=== PATIENT | female | born 1955 | race Caucasian/White ===

== ENCOUNTER → 2017-12-16 07:47 | Outpatient (CLI) | payer OTHER, SELFPAY ==
[2017-12-16 08:45] LABS: Creatinine Urine Random 73.7 mg/dL
[2017-12-16 08:49] LABS: Microalbumi Creatinin Ratio Ur 25.7 ug/mg CR (<30); Microalbumin Urine Random 1.9 mg/dL (0-1.6)
[2017-12-16 15:37] LABS: BUN Creatinine Ratio 37.1 (6-22); Blood Urea Nitrogen 26 mg/dL (7-17); Calcium 9.2 mg/dL (8.4-10.2); Carbon Dioxide 33 mmol/L (22-32); Chloride 101 mmol/L (98-107); Cholesterol 208 mg/dL (140-199); Estimated Glomerular Filt Rate > 60.0 mL/min (>60); Glucose 90 mg/dL (80-110); HDL Cholesterol 74 mg/dL (40-60); HEMOLYSIS < 15 (0-50); LDL Cholesterol Calculated 124 mg/dL (<100); Potassium 4.4 mmol/L (3.4-5.1); Sodium 140 mmol/L (137-145); Triglycerides 50 mg/dL (35-150)
== END ==
PROVIDERS: Family Provider Family Medicine; PCP Family Medicine; Visit Provider Family Medicine
DX: I10 Essential (primary) hypertension (principal)
CPT/HCPCS: 36415; 80048; 80061; 82043; 82570

== ENCOUNTER → 2018-11-21 08:39 | Outpatient (CLI) | payer OTHER, SELFPAY ==
[2018-11-21 09:27] LABS: BUN Creatinine Ratio 37.5 (6-22); Blood Urea Nitrogen 30 mg/dL (7-17); Calcium 9.6 mg/dL (8.4-10.2); Carbon Dioxide 28 mmol/L (22-32); Chloride 104 mmol/L (98-107); Estimated Glomerular Filt Rate > 60.0 mL/min (>60); Glucose 87 mg/dL (80-110); HEMOLYSIS < 15 (0-50); Potassium 4.5 mmol/L (3.4-5.1); Sodium 143 mmol/L (137-145)
[2018-11-21 11:19] LABS: Creatinine Urine Random 42.4 mg/dL
[2018-11-21 11:25] LABS: Microalbumi Creatinin Ratio Ur 94.3 ug/mg CR (<30)
== END ==
PROVIDERS: PCP Family Medicine; Visit Provider Family Medicine
DX: I10 Essential (primary) hypertension (principal)
CPT/HCPCS: 36415; 80048; 82043; 82570

== ENCOUNTER → 2019-02-08 11:33 | Outpatient (CLI) | payer OTHER, SELFPAY ==
--- NOTE | 2019-02-08 11:35 | DI.RAD.S_ITS ---
PROCEDURE: XR CERVICAL SPINE 2V OR 3V INDICATIONS: Neck pain TECHNIQUE: 3 view(s) of the cervical spine were acquired. COMPARISON: None. FINDINGS: Bones: No fractures or dislocations to the C7 level. Anterior wedge compression deformity of indeterminate age is noted at T1 level with up to 30% loss of T1 vertebral body height anteriorly. Mild degenerative disc disease throughout cervical spine is seen. The lateral masses of C1 appear intact on the odontoid view. No suspicious bony lesions. Soft tissues: No prevertebral soft tissue swelling. IMPRESSION: Mild degenerative disc disease throughout cervical spine. No gross acute cervical spine compression fracture or spondylolisthesis. Age-indeterminate in anterior wedge compression deformity at T1 level with up to 30% loss of T1 vertebral body height anteriorly. Dictated by: Slick Laurent M.D. on 02/08/2019 at 12:13 Approved by: Slick Laurent M.D. on 02/08/2019 at 12:14
--- NOTE | 2019-02-08 11:35 | DI.RAD.S_ITS ---
PROCEDURE: XR SHOULDER LT MIN 2V INDICATIONS: Left shoulder pain TECHNIQUE: 3 views of the shoulder were acquired. COMPARISON: None. FINDINGS: Bones: Mild osteoarthritic changes in acromioclavicular joint and glenohumeral joint are seen. No fractures or dislocations. No suspicious bony lesions. Visualized ribs appear intact. Soft tissues: No suspicious soft tissue calcifications. IMPRESSION: Mild left shoulder joint osteoarthritis. No acute fracture or dislocation. Dictated by: Slick Laurent M.D. on 02/08/2019 at 12:14 Approved by: Slick Laurent M.D. on 02/08/2019 at 12:16
== END ==
PROVIDERS: PCP Family Medicine; Visit Provider Family Medicine
DX: M54.2 Cervicalgia (principal); M19.012 Primary osteoarthritis, left shoulder; M25.512 Pain in left shoulder
CPT/HCPCS: 72040; 73030

== ENCOUNTER 2019-07-19 09:45 | Outpatient (RCR) | payer OTHER, SELFPAY ==
--- NOTE | 2019-03-28 15:59 | PT.OIE ---
Current Diagnoses Pain in left shoulder (03/28/19) Cervicalgia (03/28/19) Abnormal posture (03/28/19) Weakness (03/28/19) Past Medical History (Last Reviewed 02/08/19 @ 19:26 by Fabian Boucher MD) Chicken pox (Resolved 1962) CTS (carpal tunnel syndrome) (Resolved 2007) Early onset macular degeneration (Chronic 2009) Essential hypertension (Chronic) Infertility (Resolved 1980) Irregular periods/menstrual cycles (Resolved 1974) Measles (Resolved 1962) Osteoarthritis (Chronic 2010) Pneumonia (Resolved 2014) Retinal detachment (Resolved 2009) Rubella (Resolved 1962) Past Surgical History (Last Reviewed 02/08/19 @ 19:26 by Fabian Boucher MD) Anesthesia (Resolved) History of carpal tunnel repair (Resolved 09/2009) Status post delivery (Resolved 11/05/84) Visit Care Team Role Provider Type Kathryn Brandon MD Attending Provider Physician Primary Care Provider Specialty: [facility] Address: [address] [place] [address] Email: [email or web address] Physical Therapy Initial Evaluation PT-OP-A Visit Information Start: 03/28/19 07:28 Freq: Status: Active Protocol: Document 03/28/19 13:00 MT (Rec: 03/28/19 13:47 MT [id number]) Out-Patient Physical Therapy Visit Information Visit Information Visit Type Initial Evaluation Visit Start Time 13:00 Visit Stop Time 13:46 Total Visit Minutes 46 Visit Number 1 Number of DISTRIBUTION ACCOUNTING CLERK Visits 0 PT-OP-B Current Condition Start: 03/28/19 07:28 Freq: Status: Active Protocol: Document 03/28/19 13:00 MT (Rec: 03/28/19 13:47 MT [id number]) Current Condition History of Current Condition History of Current Condition Went ot see Dr. Sparks for her shoulder and he told her she has tendonitis in her rotator cuff of left shoulder. She works at [employer] and has not been able to lift anything above her head above her head. She has taken time off work (she has 3 weeks) and her shoulder got better through that rest period. Pt reports pain about 3 inches down from base of neck. She was seen for a concussion. At recent visit, took x-ray and found compression fracture in cevical spine but was unsure about how shelter that compression was from. About 5 years ago, pt had a heavy box fall directly onto her head and she was seen for a concussion, which she thought may be where the compression fracture might have come from. She has history of sciatica. She stated that she woke up one morning in October and the pain in her neck was there. Neck pain seems to coincide with the L shoulder pain, but is less constant than the shoulder pain. Pt reports that the pain used to go down her arm about custodial, but does not do that as much. Pt was told by doctor to follow up after PT. Treatment Goals Patient/Caregiver Goals decrease pain, be able to return to work PT-OP-C Subjective Start: 03/28/19 07:28 Freq: Status: Active Protocol: Document 03/28/19 13:00 MT (Rec: 03/28/19 13:47 MT [id number]) Patient Questionnaires Neck Disability Index NDI Score 12 Neck Disability Index Impairment 20 to 39% Impaired (Score 10- 19) OP-PT Pain Assessment Location shoulder Pain Location Details L shoulder Intensity 6 Scale Used Numeric (1 - 10) Description Aching,Shooting Description- Other pins and needles Frequency Constant Pain Aggravating Factors Position,Lifting Other Pain Aggravating Factors long days of working Pain Alleviating Factors Cold,Heat,Medication,Position, Rest Other Pain Alleviating Factors laying on/compressing shoulder to alleviate discomfort at night neck Intensity 4 Scale Used Numeric (1 - 10) Description Aching,Shooting Frequency Daily Pain Aggravating Factors Lifting Pain Alleviating Factors Cold,Heat Other Pain Alleviating Factors tramidol for pain PT-OP-F Manual Assessment Start: 03/28/19 07:28 Freq: Status: Active Protocol: Document 03/28/19 13:00 MT (Rec: 03/28/19 13:47 MT [id number]) Manual Assessments Soft Tissue Assessment Soft Tissue Mobility Assessment pain along paraspinals at C-T junction, L UT tenderness & tightness PT-OP-J Posture/Palpation/Skin Start: 03/28/19 07:28 Freq: Status: Active Protocol: Document 03/28/19 13:00 MT (Rec: 03/28/19 13:47 MT [id number]) Posture Evaluation Delia Postural Classification System Delia Postural Classifications Posterior/Anterior Elbow Flexion Test 0 Comments Posture Comments Ant sheared pelvis; L shoulder higher than R, bilateral shoulders rounding forward in standing PT-OP-K Range of Motion Start: 03/28/19 07:28 Freq: Status: Active Protocol: Document 03/28/19 13:00 MT (Rec: 03/28/19 13:47 MT [id number]) Cervical Spine Range of Motion Cervical Spine Active Flexion 33 Extension 55 Rotation Left 58 Rotation Right 34 Lateral Flexion Left 46 Lateral Flexion Right 42 Comments pain w/flex; pain in L UT region w/L SB; pain in R side w/rotation B described as a stretching feeling Shoulder Goniometric Range of Motion Shoulder Right Active Shoulder ROM WFL Yes Testing Position Standing Flexion 154 Abduction 130 External Rotation at 0 degrees Abduction 62 Internal Rotation Behind Back (text) T7 Left Active Shoulder ROM WFL No Testing Position Standing Flexion 86 Abduction 84 External Rotation at 0 degrees Abduction 50 Internal Rotation Behind Back (text) T10 PT-OP-L Special Tests Start: 03/28/19 07:28 Freq: Status: Active Protocol: Document 03/28/19 13:00 MT (Rec: 03/28/19 13:47 MT [id number]) Special Tests Cervical Spine Special Tests Foraminal Compression Test Results aggravated sx in neck Traction Test Results relief of neck sx Spurling's Test Test Results pain in neck; stretching w/SB compression Shoulder Special Tests Neer Impingement Test Results positive L Christianson Farhad Impingement Test Results positive L Empty Can Test Results postive L Neural Special Tests- Upper Body Median Nerve Tension Test Results neg Radial Nerve Tension Test Results neg Ulnar Nerve Tension Test Results neg PT-OP-M Strength Start: 03/28/19 07:28 Freq: Status: Active Protocol: Document 03/28/19 13:00 MT (Rec: 03/28/19 13:47 MT [id number]) Cervical Spine Strength Cervical Spine Manual Muscle Testing Testing Position Sitting Flexion (C1-2) 4 Good Extension 5 Normal Rotation Left 4 Good Rotation Right 5 Normal Lateral Flexion Left (C3) 5 Normal Lateral Flexion Right (C3) 5 Normal Reason Not Measured Pain PT-OP-Q Treatments Start: 03/28/19 07:28 Freq: Status: Active Protocol: Document 03/28/19 13:00 MT (Rec: 03/28/19 13:47 MT [id number]) Therapeutic Exercises Supine Exercises chin tuck Supine Exercise Name chin tuck Reps/Minutes 10 Comments cueing to avoid excessive neck flexion off table Standing Exercises posture Standing Exercise Name wall posture with focus on scapular retraction Comments pt required frequent cueing for isolating shoulder retraction w/o lordosis PT-OP-T Assessment and Plan Start: 03/28/19 07:28 Freq: Status: Active Protocol: Document 03/28/19 13:00 MT (Rec: 03/28/19 13:47 MT [id number]) Physical Therapy Assessment Rehab Potential Rehabilitation Potential Good Evaluation Complexity Number of Personal Factors/Comorbidities 3 or More Number of Body Systems Impaired 4 or More Clinical Presentation at Evaluation Stable Impairments Impairments Activity Tolerance,Functional Activities,Functional Mobility ,Pain,Posture,ROM,Soft Tissue Mobility,Strength Goals NDI Fdc Goal (LTG) pt will decrease her NDI score to 6/50 LTG Duration 05/28/19 Oswestry Front Office Administrator Goal (LTG) Pt will decrease her Oswestry score to 6/50 LTG Duration 05/28/19 strength Impairment impaired neck strength Short Term Goal (STG) pt will be compliant with HEP for neck and postural strengthening exercises STG Duration 04/27/19 Front Office Administrator Goal (LTG) Pt will increase neck strength to 5/5 in all directions LTG Duration 05/28/19 posture Front Office Administrator Goal (LTG) pt will demonstrate improved posture with minimal deviations for improved activity tolerance for work and daily activities LTG Duration 05/28/19 pain Impairment neck pain Short Term Goal (STG) pt will decrease neck pain to 3/10 with daily activity STG Duration 04/27/19 Front Office Administrator Goal (LTG) pt will be able to complete a full shift at work without aggravation of symptoms LTG Duration 05/28/19 Assessment Summary Assessment Pt presents to physical therapy with neck and L shoulder pain. The L shoulder pain presents as a rotator cuff injury and appears separate from the neck symptoms. She has tightness and is very tender in her L upper trap. She is tender in her paraspinals with the most tenderness around her CT junction. She is limited in her neck ROM and strength d/t neck pain. She struggles with activities involved in her work such as lifting, overhead arm movement, and prolonged standing. Physical Therapy Plan Frequency and Duration Frequency of Treatment 2x/Week Duration of Treatment 2 months Plan of Care Start Date 03/28/19 Plan of Care End Date 05/28/19 Therapeutic Interventions Therapeutic Interventions Aquatic Therapy,Coordination Training,Home Exercise Program ,Joint Mobilizations,Manual Therapy,Neuromuscular Re- education,Patient/Caregiver Education,Self-Care/Home Management,Soft Tissue Mobilization,Taping, Therapeutic Activities, Therapeutic Exercises Modalities Cold Pack/Ice Massage,Electric Stimulation,Hot Packs, Infrared Therapy,Traction- Mechanical,Ultrasound Next Visit Focus/Plan Next Note Type Treatment Note Next Visit Plan develop HEP for neck ROM and postural strenthening exercises, manual therapy on UT and paraspinals, scapular proprioceptionand stabilization
--- NOTE | 2019-04-07 14:30 | PT.OTN ---
Current Diagnoses Pain in left shoulder (04/07/19) Cervicalgia (04/07/19) Abnormal posture (04/07/19) Weakness (04/07/19) Physical Therapy Treatment Note PT-OP-A Visit Information Start: 03/28/19 07:28 Freq: Status: Active Protocol: Document 04/07/19 10:30 AMB (Rec: 04/07/19 12:59 AMB [id number]) Out-Patient Physical Therapy Visit Information Visit Information Visit Type Treatment Note Visit Start Time 10:30 Visit Stop Time 11:15 Total Visit Minutes 45 Visit Number 2 PT-OP-B Current Condition Start: 03/28/19 07:28 Freq: Status: Active Protocol: Document 03/28/19 13:00 MT (Rec: 03/28/19 13:47 MT [id number]) Current Condition History of Current Condition History of Current Condition Went ot see Dr. Sparks for her shoulder and he told her she has tendonitis in her rotator cuff of left shoulder. She works at [employer] and has not been able to lift anything above her head above her head. She has taken time off work (she has 3 weeks) and her shoulder got better through that rest period. Pt reports pain about 3 inches down from base of neck. She was seen for a concussion. At recent visit, took x-ray and found compression fracture in cevical spine but was unsure about how longterm that compression was from. About 5 years ago, pt had a heavy box fall directly onto her head and she was seen for a concussion, which she thought may be where the compression fracture might have come from. She has history of sciatica. She stated that she woke up one morning in October and the pain in her neck was there. Neck pain seems to coincide with the L shoulder pain, but is less constant than the shoulder pain. Pt reports that the pain used to go down her arm about [facility], but does not do that as much. Pt was told by doctor to follow up after PT. Treatment Goals Patient/Caregiver Goals decrease pain, be able to return to work PT-OP-C Subjective Start: 03/28/19 07:28 Freq: Status: Active Protocol: Document 04/07/19 10:30 AMB (Rec: 04/07/19 12:59 AMB [id number]) OP-PT Subjective Patient Comments Patient Comments Etta notes she was quite sore after the initial evaluation, but knows that it was probably all the measurements that had to be done. She is doing her HEP. PT-OP-F Manual Assessment Start: 03/28/19 07:28 Freq: Status: Active Protocol: Document 03/28/19 13:00 MT (Rec: 03/28/19 13:47 MT [id number]) Manual Assessments Soft Tissue Assessment Soft Tissue Mobility Assessment pain along paraspinals at C-T junction, L UT tenderness & tightness PT-OP-J Posture/Palpation/Skin Start: 03/28/19 07:28 Freq: Status: Active Protocol: Document 03/28/19 13:00 MT (Rec: 03/28/19 13:47 MT [id number]) Posture Evaluation Delia Postural Classification System Delia Postural Classifications Posterior/Anterior Elbow Flexion Test 0 Comments Posture Comments Ant sheared pelvis; L shoulder higher than R, bilateral shoulders rounding forward in standing PT-OP-K Range of Motion Start: 03/28/19 07:28 Freq: Status: Active Protocol: Document 03/28/19 13:00 MT (Rec: 03/28/19 13:47 MT [id number]) Cervical Spine Range of Motion Cervical Spine Active Flexion 33 Extension 55 Rotation Left 58 Rotation Right 34 Lateral Flexion Left 46 Lateral Flexion Right 42 Comments pain w/flex; pain in L UT region w/L SB; pain in R side w/rotation B described as a stretching feeling Shoulder Goniometric Range of Motion Shoulder Right Active Shoulder ROM WFL Yes Testing Position Standing Flexion 154 Abduction 130 External Rotation at 0 degrees Abduction 62 Internal Rotation Behind Back (text) T7 Left Active Shoulder ROM WFL No Testing Position Standing Flexion 86 Abduction 84 External Rotation at 0 degrees Abduction 50 Internal Rotation Behind Back (text) T10 PT-OP-L Special Tests Start: 03/28/19 07:28 Freq: Status: Active Protocol: Document 03/28/19 13:00 MT (Rec: 03/28/19 13:47 MT [id number]) Special Tests Cervical Spine Special Tests Foraminal Compression Test Results aggravated sx in neck Traction Test Results relief of neck sx Spurling's Test Test Results pain in neck; stretching w/SB compression Shoulder Special Tests Neer Impingement Test Results positive L Christianson Farhad Impingement Test Results positive L Empty Can Test Results postive L Neural Special Tests- Upper Body Median Nerve Tension Test Results neg Radial Nerve Tension Test Results neg Ulnar Nerve Tension Test Results neg PT-OP-M Strength Start: 03/28/19 07:28 Freq: Status: Active Protocol: Document 03/28/19 13:00 MT (Rec: 03/28/19 13:47 MT [id number]) Cervical Spine Strength Cervical Spine Manual Muscle Testing Testing Position Sitting Flexion (C1-2) 4 Good Extension 5 Normal Rotation Left 4 Good Rotation Right 5 Normal Lateral Flexion Left (C3) 5 Normal Lateral Flexion Right (C3) 5 Normal Reason Not Measured Pain PT-OP-Q Treatments Start: 03/28/19 07:28 Freq: Status: Active Protocol: Document 04/07/19 10:30 AMB (Rec: 04/07/19 14:30 AMB [email or web address]) Therapeutic Exercises Supine Exercises 1 Supine Exercise Name cervical rotation isometric Reps/Minutes 5x5 ea chin tuck Supine Exercise Name chin tuck Reps/Minutes 10 Comments cueing to think of stretching occiput up, pulling chin back Sitting Exercises 1 Sitting Exercise Name UT/ levator scap stretch Reps/Minutes 30x2 Standing Exercises 2 Standing Exercise Name modified doorway stretch Reps/Minutes 30x3 Comments arms at 45 degrees abduction, straight elbow 1 Standing Exercise Name t band rows Resistance #2 t band Reps/Minutes 2x10 Comments vc posture posture Standing Exercise Name wall posture with focus on scapular retraction Comments pt required frequent cueing for isolating shoulder retraction w/o lordosis Manual Therapy Treatment Soft Tissue Mobilization 1 Body Location L UT, suboccipitals, paraspinals Mobilization Type Myofascial Release Intensity/Depth Moderate Body Position Hooklying Joint Mobilizations 1 Joint C4-7 Direction UPA Grade II Body Position Hooklying PT-OP-T Assessment and Plan Start: 03/28/19 07:28 Freq: Status: Active Protocol: Document 04/07/19 10:30 AMB (Rec: 04/07/19 14:30 AMB [id number]) Physical Therapy Assessment Assessment Summary Assessment Pt does tend to over use her upper trap due to left arm weakness. Tolerated stretching well today. Better awareness of posture with verbal cueing, but pt does revert to old habits without cueing. Physical Therapy Plan Next Visit Focus/Plan Next Note Type Treatment Note Next Visit Plan develop HEP for neck ROM and postural strenthening exercises, manual therapy on UT and paraspinals, scapular proprioceptionand stabilization
--- NOTE | 2019-04-11 14:11 | PT.OTN ---
Current Diagnoses Pain in left shoulder (04/11/19) Cervicalgia (04/11/19) Abnormal posture (04/11/19) Weakness (04/11/19) Physical Therapy Treatment Note PT-OP-A Visit Information Start: 03/28/19 07:28 Freq: Status: Active Protocol: Document 04/11/19 11:16 MT (Rec: 04/11/19 12:57 MT [email or web address]) Out-Patient Physical Therapy Visit Information Visit Information Visit Type Treatment Note Visit Start Time 11:16 Visit Stop Time 12:02 Total Visit Minutes 46 Visit Number 3 Number of CHRONOGRAPH OPERATOR Visits 0 PT-OP-B Current Condition Start: 03/28/19 07:28 Freq: Status: Active Protocol: Document 03/28/19 13:00 MT (Rec: 03/28/19 13:47 MT [id number]) Current Condition History of Current Condition History of Current Condition Went ot see Dr. Sparks for her shoulder and he told her she has tendonitis in her rotator cuff of left shoulder. She works at [employer] and has not been able to lift anything above her head above her head. She has taken time off work (she has 3 weeks) and her shoulder got better through that rest period. Pt reports pain about 3 inches down from base of neck. She was seen for a concussion. At recent visit, took x-ray and found compression fracture in cevical spine but was unsure about how correction that compression was from. About 5 years ago, pt had a heavy box fall directly onto her head and she was seen for a concussion, which she thought may be where the compression fracture might have come from. She has history of sciatica. She stated that she woke up one morning in October and the pain in her neck was there. Neck pain seems to coincide with the L shoulder pain, but is less constant than the shoulder pain. Pt reports that the pain used to go down her arm about long term, but does not do that as much. Pt was told by doctor to follow up after PT. Treatment Goals Patient/Caregiver Goals decrease pain, be able to return to work PT-OP-C Subjective Start: 03/28/19 07:28 Freq: Status: Active Protocol: Document 04/11/19 11:16 MT (Rec: 04/11/19 12:57 MT [id number]) OP-PT Subjective Patient Comments Patient Comments Etta stated that she was able to do a full shift of work yesterday. She did note increased soreness from working. PT-OP-F Manual Assessment Start: 03/28/19 07:28 Freq: Status: Active Protocol: Document 03/28/19 13:00 MT (Rec: 03/28/19 13:47 MT [id number]) Manual Assessments Soft Tissue Assessment Soft Tissue Mobility Assessment pain along paraspinals at C-T junction, L UT tenderness & tightness PT-OP-J Posture/Palpation/Skin Start: 03/28/19 07:28 Freq: Status: Active Protocol: Document 03/28/19 13:00 MT (Rec: 03/28/19 13:47 MT [id number]) Posture Evaluation Delia Postural Classification System Delia Postural Classifications Posterior/Anterior Elbow Flexion Test 0 Comments Posture Comments Ant sheared pelvis; L shoulder higher than R, bilateral shoulders rounding forward in standing PT-OP-K Range of Motion Start: 03/28/19 07:28 Freq: Status: Active Protocol: Document 03/28/19 13:00 MT (Rec: 03/28/19 13:47 MT [id number]) Cervical Spine Range of Motion Cervical Spine Active Flexion 33 Extension 55 Rotation Left 58 Rotation Right 34 Lateral Flexion Left 46 Lateral Flexion Right 42 Comments pain w/flex; pain in L UT region w/L SB; pain in R side w/rotation B described as a stretching feeling Shoulder Goniometric Range of Motion Shoulder Right Active Shoulder ROM WFL Yes Testing Position Standing Flexion 154 Abduction 130 External Rotation at 0 degrees Abduction 62 Internal Rotation Behind Back (text) T7 Left Active Shoulder ROM WFL No Testing Position Standing Flexion 86 Abduction 84 External Rotation at 0 degrees Abduction 50 Internal Rotation Behind Back (text) T10 PT-OP-L Special Tests Start: 03/28/19 07:28 Freq: Status: Active Protocol: Document 03/28/19 13:00 MT (Rec: 03/28/19 13:47 MT [id number]) Special Tests Cervical Spine Special Tests Foraminal Compression Test Results aggravated sx in neck Traction Test Results relief of neck sx Spurling's Test Test Results pain in neck; stretching w/SB compression Shoulder Special Tests Neer Impingement Test Results positive L Christianson Farhad Impingement Test Results positive L Empty Can Test Results postive L Neural Special Tests- Upper Body Median Nerve Tension Test Results neg Radial Nerve Tension Test Results neg Ulnar Nerve Tension Test Results neg PT-OP-M Strength Start: 03/28/19 07:28 Freq: Status: Active Protocol: Document 03/28/19 13:00 MT (Rec: 03/28/19 13:47 MT [id number]) Cervical Spine Strength Cervical Spine Manual Muscle Testing Testing Position Sitting Flexion (C1-2) 4 Good Extension 5 Normal Rotation Left 4 Good Rotation Right 5 Normal Lateral Flexion Left (C3) 5 Normal Lateral Flexion Right (C3) 5 Normal Reason Not Measured Pain PT-OP-Q Treatments Start: 03/28/19 07:28 Freq: Status: Active Protocol: Document 04/11/19 11:16 MT (Rec: 04/11/19 12:57 MT [email or web address]) Therapeutic Exercises Supine Exercises chin tuck Supine Exercise Name chin tuck Reps/Minutes 10 Comments cueing to think of stretching occiput up, pulling chin back Sitting Exercises neck rotation Sitting Exercise Name self-resisted neck rotation Side bilateral Reps/Minutes 2x15 sec holds 1 Sitting Exercise Name UT/ levator scap stretch Reps/Minutes 30x2 Standing Exercises 2 Standing Exercise Name modified doorway stretch Reps/Minutes 30x3 Comments arms at 45 degrees abduction, straight elbow 1 Standing Exercise Name t band rows and pull downs Resistance #2 t band Reps/Minutes 2x10 Comments vc posture posture Standing Exercise Name wall posture with focus on scapular retraction Comments pt required frequent cueing for isolating shoulder retraction w/o lordosis Manual Therapy Treatment Soft Tissue Mobilization 1 Body Location L UT, suboccipitals, paraspinals Mobilization Type Myofascial Release, Oscillations,Rolling,Strumming ,Sustained Pressure Intensity/Depth Moderate Body Position Hooklying PT-OP-T Assessment and Plan Start: 03/28/19 07:28 Freq: Status: Active Protocol: Document 04/11/19 11:16 MT (Rec: 04/11/19 12:57 MT [email or web address]) Physical Therapy Assessment Goals NDI Enterprise Application Architect Goal (LTG) pt will decrease her NDI score to 6/50 LTG Duration 05/28/19 strength Impairment impaired neck strength Short Term Goal (STG) pt will be compliant with HEP for neck and postural strengthening exercises STG Duration 04/27/19 Shelter Goal (LTG) Pt will increase neck strength to 5/5 in all directions LTG Duration 05/28/19 posture Shelter Goal (LTG) pt will demonstrate improved posture with minimal deviations for improved activity tolerance for work and daily activities LTG Duration 05/28/19 pain Impairment neck pain Short Term Goal (STG) pt will decrease neck pain to 3/10 with daily activity STG Duration 04/27/19 Enterprise Application Architect Goal (LTG) pt will be able to complete a full shift at work without aggravation of symptoms LTG Duration 05/28/19 Assessment Summary Assessment Reduced pt visits to 1x per week since she is compliant and independent with her HEP. Pt noted less pain and had more soft tissue mobility following STM to UT/LS/PS. Reviewed exercises given to pt and provided cueing for proper scapular motion and control. Pt tolerated stretches well. Physical Therapy Plan Frequency and Duration Frequency of Treatment 2x/Week Duration of Treatment 2 months Plan of Care Start Date 03/28/19 Plan of Care End Date 05/28/19 Next Visit Focus/Plan Next Note Type Treatment Note Next Visit Plan continue to progress HEP for scapular control/ proprioception and postural stability
--- NOTE | 2019-04-19 17:55 | PT.OTN ---
Current Diagnoses Pain in left shoulder (04/19/19) Cervicalgia (04/19/19) Abnormal posture (04/19/19) Weakness (04/19/19) Physical Therapy Treatment Note PT-OP-A Visit Information Start: 03/28/19 07:28 Freq: Status: Active Protocol: Document 04/19/19 16:44 MT (Rec: 04/19/19 17:49 MT [id number]) Out-Patient Physical Therapy Visit Information Visit Information Visit Type Treatment Note Visit Start Time 16:44 Visit Stop Time 17:30 Total Visit Minutes 46 Visit Number 4 Number of CANVASS MANAGER Visits 0 PT-OP-B Current Condition Start: 03/28/19 07:28 Freq: Status: Active Protocol: Document 03/28/19 13:00 MT (Rec: 03/28/19 13:47 MT [id number]) Current Condition History of Current Condition History of Current Condition Went ot see Dr. Sparks for her shoulder and he told her she has tendonitis in her rotator cuff of left shoulder. She works at [employer] and has not been able to lift anything above her head above her head. She has taken time off work (she has 3 weeks) and her shoulder got better through that rest period. Pt reports pain about 3 inches down from base of neck. She was seen for a concussion. 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 About 5 years ago, pt had a heavy box fall directly onto her head and she was seen for a concussion, which she thought may be where the compression fracture might have come from. She has history of sciatica. She stated that she woke up one morning in October and the pain in her neck was there. Neck pain seems to coincide with the L shoulder pain, but is less constant than the shoulder pain. Pt reports that the pain used to go down her arm about prison, but does not do that as much. Pt was told by doctor to follow up after PT. Treatment Goals Patient/Caregiver Goals decrease pain, be able to return to work PT-OP-C Subjective Start: 03/28/19 07:28 Freq: Status: Active Protocol: Document 04/19/19 16:44 MT (Rec: 04/19/19 17:49 MT [id number]) OP-PT Subjective Patient Comments Patient Comments Pt reported that she continues to have neck, shoulder, and hip pain. She has not had to work since the last PT visit. Pt stated that the doorway stretching exercises were hurting her knee. She reports that stairs are really hurting PT-OP-F Manual Assessment Start: 03/28/19 07:28 Freq: Status: Active Protocol: Document 03/28/19 13:00 MT (Rec: 03/28/19 13:47 MT [id number]) Manual Assessments Soft Tissue Assessment Soft Tissue Mobility Assessment pain along paraspinals at C-T junction, L UT tenderness & tightness PT-OP-J Posture/Palpation/Skin Start: 03/28/19 07:28 Freq: Status: Active Protocol: Document 03/28/19 13:00 MT (Rec: 03/28/19 13:47 MT [id number]) Posture Evaluation [facility] Postural Classification System Delia Postural Classifications Posterior/Anterior Elbow Flexion Test 0 Comments Posture Comments Ant sheared pelvis; L shoulder higher than R, bilateral shoulders rounding forward in standing PT-OP-K Range of Motion Start: 03/28/19 07:28 Freq: Status: Active Protocol: Document 03/28/19 13:00 MT (Rec: 03/28/19 13:47 MT [id number]) Cervical Spine Range of Motion Cervical Spine Active Flexion 33 Extension 55 Rotation Left 58 Rotation Right 34 Lateral Flexion Left 46 Lateral Flexion Right 42 Comments pain w/flex; pain in L UT region w/L SB; pain in R side w/rotation B described as a stretching feeling Shoulder Goniometric Range of Motion Shoulder Right Active Shoulder ROM WFL Yes Testing Position Standing Flexion 154 Abduction 130 External Rotation at 0 degrees Abduction 62 Internal Rotation Behind Back (text) T7 Left Active Shoulder ROM WFL No Testing Position Standing Flexion 86 Abduction 84 External Rotation at 0 degrees Abduction 50 Internal Rotation Behind Back (text) T10 PT-OP-L Special Tests Start: 03/28/19 07:28 Freq: Status: Active Protocol: Document 03/28/19 13:00 MT (Rec: 03/28/19 13:47 MT [id number]) Special Tests Cervical Spine Special Tests Foraminal Compression Test Results aggravated sx in neck Traction Test Results relief of neck sx Spurling's Test Test Results pain in neck; stretching w/SB compression Shoulder Special Tests Neer Impingement Test Results positive L Christianson Farhad Impingement Test Results positive L Empty Can Test Results postive L Neural Special Tests- Upper Body Median Nerve Tension Test Results neg Radial Nerve Tension Test Results neg Ulnar Nerve Tension Test Results neg PT-OP-M Strength Start: 03/28/19 07:28 Freq: Status: Active Protocol: Document 03/28/19 13:00 MT (Rec: 03/28/19 13:47 MT [id number]) Cervical Spine Strength Cervical Spine Manual Muscle Testing Testing Position Sitting Flexion (C1-2) 4 Good Extension 5 Normal Rotation Left 4 Good Rotation Right 5 Normal Lateral Flexion Left (C3) 5 Normal Lateral Flexion Right (C3) 5 Normal Reason Not Measured Pain PT-OP-Q Treatments Start: 03/28/19 07:28 Freq: Status: Active Protocol: Document 04/19/19 16:44 MT (Rec: 04/19/19 17:49 MT [id number]) Therapeutic Exercises Supine Exercises chin tuck Supine Exercise Name chin tuck Reps/Minutes 10 Comments cueing to think of stretching occiput up, pulling chin back Sitting Exercises neck rotation Sitting Exercise Name self-resisted neck rotation Side bilateral Reps/Minutes 2x15 sec holds Comments added to HEP with use of mirror for visual cueing 1 Sitting Exercise Name UT/ levator scap stretch Reps/Minutes 30 seconds Standing Exercises 2 Standing Exercise Name modified doorway stretch (arms at 45 degrees) Reps/Minutes 30 seconds Comments cueing to lean forward to achieve stretch vs lunging 1 Standing Exercise Name t band rows and pull downs Resistance #2 t band Reps/Minutes 10 Comments vc posture posture Standing Exercise Name wall posture with focus on scapular retraction Comments pt required frequent cueing for isolating shoulder retraction w/o lordosis Manual Therapy Treatment Soft Tissue Mobilization 1 Body Location B UT, LS, suboccipitals, paraspinals, SCM Mobilization Type Myofascial Release, Oscillations,Rolling,Strumming ,Sustained Pressure Intensity/Depth Moderate Body Position Hooklying PT-OP-T Assessment and Plan Start: 03/28/19 07:28 Freq: Status: Active Protocol: Document 04/19/19 16:44 MT (Rec: 04/19/19 17:49 MT [id number]) Physical Therapy Assessment Goals NDI Sewage 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 Goal (LTG) pt will decrease her NDI score to 6/50 LTG Duration 05/28/19 strength Impairment impaired neck strength Short Term Goal (STG) pt will be compliant with HEP for neck and postural strengthening exercises STG Duration 04/27/19 Sewage 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 Goal (LTG) Pt will increase neck strength to 5/5 in all directions LTG Duration 05/28/19 posture Sewage 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 Goal (LTG) pt will demonstrate improved posture with minimal deviations for improved activity tolerance for work and daily activities LTG Duration 05/28/19 pain Impairment neck pain Short Term Goal (STG) pt will decrease neck pain to 3/10 with daily activity STG Duration 04/27/19 Retirement Goal (LTG) pt will be able to complete a full shift at work without aggravation of symptoms LTG Duration 05/28/19 Assessment Summary Assessment Reviewed HEP with pt. Pt was performign doorway stretch with a lunge, so instructed her through forward lean to achieve proper stretch without pressure to her knees. Pt was able to perform wall posture exercise with less cueing and was better able to isolate her scapular motions without lumbar extension. Pt continues to require cueing for avoiding compensations with the strettches and exercises in her HEP. Following STM, pt was able to achieve greater ROM and reported less pain with neck rotation and side bending. Observed pt's gait: during R stance phase she leans to the R, elevates her L shoulder, and circumducts her L leg to step forward. This could be contributing to her neck pain, as she is inappropriately activating her shoulder and causing her UT/LS/scalenes could be tight. COuld also indicate that patient is getting improper coordination between her shoulder and pelvic girdle during gait Physical Therapy Plan Frequency and Duration Frequency of Treatment 2x/Week Duration of Treatment 2 months Plan of Care Start Date 03/28/19 Plan of Care End Date 05/28/19 Next Visit Focus/Plan Next Note Type Treatment Note Next Visit Plan continue to review HEP for technique, progress HEP for scapular stability and neck strength/ROM, begin working on standing posture, PNF with mass rolling
--- NOTE | 2019-04-26 18:35 | PT.OTN ---
Current Diagnoses Pain in left shoulder (04/26/19) Cervicalgia (04/26/19) Abnormal posture (04/26/19) Weakness (04/26/19) Physical Therapy Treatment Note PT-OP-A Visit Information Start: 03/28/19 07:28 Freq: Status: Active Protocol: Document 04/26/19 09:45 MT (Rec: 04/26/19 12:52 MT [id number]) Out-Patient Physical Therapy Visit Information Visit Information Visit Type Treatment Note Visit Start Time 09:45 Visit Stop Time 10:32 Total Visit Minutes 47 Visit Number 5 Number of CROP CONSULTANT Visits 0 PT-OP-B Current Condition Start: 03/28/19 07:28 Freq: Status: Active Protocol: Document 03/28/19 13:00 MT (Rec: 03/28/19 13:47 MT [id number]) Current Condition History of Current Condition History of Current Condition Went ot see Dr. Sparks for her shoulder and he told her she has tendonitis in her rotator cuff of left shoulder. She works at [employer] and has not been able to lift anything above her head above her head. She has taken time off work (she has 3 weeks) and her shoulder got better through that rest period. Pt reports pain about 3 inches down from base of neck. She was seen for a concussion. At recent visit, took x-ray and found compression fracture in cevical spine but was unsure about how long term care phlebotomist that compression was from. About 5 years ago, pt had a heavy box fall directly onto her head and she was seen for a concussion, which she thought may be where the compression fracture might have come from. She has history of sciatica. She stated that she woke up one morning in October and the pain in her neck was there. Neck pain seems to coincide with the L shoulder pain, but is less constant than the shoulder pain. Pt reports that the pain used to go down her arm about alf, but does not do that as much. Pt was told by doctor to follow up after PT. Treatment Goals Patient/Caregiver Goals decrease pain, be able to return to work PT-OP-C Subjective Start: 03/28/19 07:28 Freq: Status: Active Protocol: Document 04/26/19 09:45 MT (Rec: 04/26/19 12:52 MT [id number]) OP-PT Subjective Patient Comments Patient Comments Pt reported that she has been very sore in the last week. She was unsure whether it was from the STM from last session or from working. 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 PT-OP-F Manual Assessment Start: 03/28/19 07:28 Freq: Status: Active Protocol: Document 03/28/19 13:00 MT (Rec: 03/28/19 13:47 MT [id number]) Manual Assessments Soft Tissue Assessment Soft Tissue Mobility Assessment pain along paraspinals at C-T junction, L UT tenderness & tightness PT-OP-J Posture/Palpation/Skin Start: 03/28/19 07:28 Freq: Status: Active Protocol: Document 03/28/19 13:00 MT (Rec: 03/28/19 13:47 MT [id number]) Posture Evaluation [facility] Postural Classification System Delia Postural Classifications Posterior/Anterior Elbow Flexion Test 0 Comments Posture Comments Ant sheared pelvis; L shoulder higher than R, bilateral shoulders rounding forward in standing PT-OP-K Range of Motion Start: 03/28/19 07:28 Freq: Status: Active Protocol: Document 03/28/19 13:00 MT (Rec: 03/28/19 13:47 MT [id number]) Cervical Spine Range of Motion Cervical Spine Active Flexion 33 Extension 55 Rotation Left 58 Rotation Right 34 Lateral Flexion Left 46 Lateral Flexion Right 42 Comments pain w/flex; pain in L UT region w/L SB; pain in R side w/rotation B described as a stretching feeling Shoulder Goniometric Range of Motion Shoulder Right Active Shoulder ROM WFL Yes Testing Position Standing Flexion 154 Abduction 130 External Rotation at 0 degrees Abduction 62 Internal Rotation Behind Back (text) T7 Left Active Shoulder ROM WFL No Testing Position Standing Flexion 86 Abduction 84 External Rotation at 0 degrees Abduction 50 Internal Rotation Behind Back (text) T10 PT-OP-L Special Tests Start: 03/28/19 07:28 Freq: Status: Active Protocol: Document 03/28/19 13:00 MT (Rec: 03/28/19 13:47 MT [id number]) Special Tests Cervical Spine Special Tests Foraminal Compression Test Results aggravated sx in neck Traction Test Results relief of neck sx Spurling's Test Test Results pain in neck; stretching w/SB compression Shoulder Special Tests Neer Impingement Test Results positive L Christianson Farhad Impingement Test Results positive L Empty Can Test Results postive L Neural Special Tests- Upper Body Median Nerve Tension Test Results neg Radial Nerve Tension Test Results neg Ulnar Nerve Tension Test Results neg PT-OP-M Strength Start: 03/28/19 07:28 Freq: Status: Active Protocol: Document 03/28/19 13:00 MT (Rec: 03/28/19 13:47 MT [id number]) Cervical Spine Strength Cervical Spine Manual Muscle Testing Testing Position Sitting Flexion (C1-2) 4 Good Extension 5 Normal Rotation Left 4 Good Rotation Right 5 Normal Lateral Flexion Left (C3) 5 Normal Lateral Flexion Right (C3) 5 Normal Reason Not Measured Pain PT-OP-Q Treatments Start: 03/28/19 07:28 Freq: Status: Active Protocol: Document 04/26/19 09:45 MT (Rec: 04/26/19 12:52 MT [id number]) Therapeutic Exercises Supine Exercises self mob Supine Exercise Name pt lay on rolled towel placed at T5 to assist with thoracic extension Side bilateral Therapeutic Activity Therapeutic Activity posture Name standing posture training Comments training and education on standing posture with emphasis on trunk stacking and pelvic tilt to avoid excessive lordosis during standing Gait Training Gait Activity gait training Description gait training in mirror Comments emphasis on reciprocal arm swings to avoid shoulder elevation durign swing phase. Manual Therapy Treatment Soft Tissue Mobilization T/S Body Location L thoracic paraspinals, infraspinatus, rhomboids Mobilization Type Oscillations,Rolling,Strumming ,Sustained Pressure Intensity/Depth Moderate Body Position Sidelying Neuro Re-Education Treatment Other Activities PNF Details shoulder girdle PNF Comments pt c/o shoulder pain with posterior elevation end range, so switched to manual therapy and came back to PNF. Pt was able to perform PNF following manual, but was unable to tolerate sidelying throughout treatemtn due to R hip bursitis. PT-OP-T Assessment and Plan Start: 03/28/19 07:28 Freq: Status: Active Protocol: Document 04/26/19 09:45 MT (Rec: 04/26/19 12:52 MT [id number]) Physical Therapy Assessment Goals NDI Half-Way Goal (LTG) pt will decrease her NDI score to 6/50 LTG Duration 05/28/19 strength Impairment impaired neck strength Short Term Goal (STG) pt will be compliant with HEP for neck and postural strengthening exercises STG Duration 04/27/19 Internal Sales Goal (LTG) Pt will increase neck strength to 5/5 in all directions LTG Duration 05/28/19 posture Internal Sales Goal (LTG) pt will demonstrate improved posture with minimal deviations for improved activity tolerance for work and daily activities LTG Duration 05/28/19 pain Impairment neck pain Short Term Goal (STG) pt will decrease neck pain to 3/10 with daily activity STG Duration 04/27/19 Half-Way Goal (LTG) pt will be able to complete a full shift at work without aggravation of symptoms LTG Duration 05/28/19 Assessment Summary Assessment Pt was trained about proper standing posture to increase her standing tolerance at work with less aggravation of neck and shoulder region. Attempted L shoulder girdle PNF to improve pt motion patterns during gait. Pt c/o pain in shoulder at end range posterior elevation, but was able to tolerate moion after STM to scapular area. Pt was unable to tolerate sidelying very long for PNF treatmetn d/ t R hip pain, so switched to gait mechanics to focus on arm swing during ambulation, as pt tends to walk with increased L shoulder elevation during swing phase which can be exacerbating her shoulder pain. Pt struggled with coordinating reciprocal arm and leg movements with arm with, but was able to demonstrate slightly increased arm swing during normal gait after. Physical Therapy Plan Frequency and Duration Frequency of Treatment 2x/Week Duration of Treatment 2 months Plan of Care Start Date 03/28/19 Plan of Care End Date 05/28/19 Next Visit Focus/Plan Next Note Type Treatment Note Next Visit Plan continue to review HEP for technique, progress HEP for scapular stability and neck strength/ROM, begin working on standing posture, PNF with mass rolling
--- NOTE | 2019-05-03 15:46 | PT.OTN ---
Current Diagnoses Pain in left shoulder (05/03/19) Cervicalgia (05/03/19) Abnormal posture (05/03/19) Weakness (05/03/19) Physical Therapy Treatment Note PT-OP-A Visit Information Start: 03/28/19 07:28 Freq: Status: Active Protocol: Document 05/03/19 11:15 MT (Rec: 05/03/19 12:59 MT [id number]) Out-Patient Physical Therapy Visit Information Visit Information Visit Type Treatment Note Visit Start Time 11:15 Visit Stop Time 11:59 Total Visit Minutes 44 Visit Number 6 Number of ELEMENTARY ASSISTANT TEACHER Visits 0 PT-OP-B Current Condition Start: 03/28/19 07:28 Freq: Status: Active Protocol: Document 03/28/19 13:00 MT (Rec: 03/28/19 13:47 MT [id number]) Current Condition History of Current Condition History of Current Condition Went ot see Dr. Sparks for her shoulder and he told her she has tendonitis in her rotator cuff of left shoulder. She works at [employer] and has not been able to lift anything above her head above her head. She has taken time off work (she has 3 weeks) and her shoulder got better through that rest period. Pt reports pain about 3 inches down from base of neck. She was seen for a concussion. 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 About 5 years ago, pt had a heavy box fall directly onto her head and she was seen for a concussion, which she thought may be where the compression fracture might have come from. She has history of sciatica. She stated that she woke up one morning in October and the pain in her neck was there. Neck pain seems to coincide with the L shoulder pain, but is less constant than the shoulder pain. Pt reports that the pain used to go down her arm about senior care, but does not do that as much. Pt was told by doctor to follow up after PT. Treatment Goals Patient/Caregiver Goals decrease pain, be able to return to work PT-OP-C Subjective Start: 03/28/19 07:28 Freq: Status: Active Protocol: Document 05/03/19 11:15 MT (Rec: 05/03/19 12:59 MT [id number]) OP-PT Subjective Patient Comments Patient Comments Pt reported that she feels like she takes a step back with her shoulder and hip pain every time that she works. She also has a lot of pain when she is getting out of bed and is beginning to have pain in her R shoudler as well now , which she feels is from compensating so much. She said that she has been trying to pay atention to her walking and is trying to make the corrections that she learned from last time. PT-OP-F Manual Assessment Start: 03/28/19 07:28 Freq: Status: Active Protocol: Document 03/28/19 13:00 MT (Rec: 03/28/19 13:47 MT [id number]) Manual Assessments Soft Tissue Assessment Soft Tissue Mobility Assessment pain along paraspinals at C-T junction, L UT tenderness & tightness PT-OP-J Posture/Palpation/Skin Start: 03/28/19 07:28 Freq: Status: Active Protocol: Document 03/28/19 13:00 MT (Rec: 03/28/19 13:47 MT [id number]) Posture Evaluation [facility] Postural Classification System Delia Postural Classifications Posterior/Anterior Elbow Flexion Test 0 Comments Posture Comments Ant sheared pelvis; L shoulder higher than R, bilateral shoulders rounding forward in standing PT-OP-K Range of Motion Start: 03/28/19 07:28 Freq: Status: Active Protocol: Document 03/28/19 13:00 MT (Rec: 03/28/19 13:47 MT [id number]) Cervical Spine Range of Motion Cervical Spine Active Flexion 33 Extension 55 Rotation Left 58 Rotation Right 34 Lateral Flexion Left 46 Lateral Flexion Right 42 Comments pain w/flex; pain in L UT region w/L SB; pain in R side w/rotation B described as a stretching feeling Shoulder Goniometric Range of Motion Shoulder Right Active Shoulder ROM WFL Yes Testing Position Standing Flexion 154 Abduction 130 External Rotation at 0 degrees Abduction 62 Internal Rotation Behind Back (text) T7 Left Active Shoulder ROM WFL No Testing Position Standing Flexion 86 Abduction 84 External Rotation at 0 degrees Abduction 50 Internal Rotation Behind Back (text) T10 PT-OP-L Special Tests Start: 03/28/19 07:28 Freq: Status: Active Protocol: Document 03/28/19 13:00 MT (Rec: 03/28/19 13:47 MT [id number]) Special Tests Cervical Spine Special Tests Foraminal Compression Test Results aggravated sx in neck Traction Test Results relief of neck sx Spurling's Test Test Results pain in neck; stretching w/SB compression Shoulder Special Tests Neer Impingement Test Results positive L Christianson Farhad Impingement Test Results positive L Empty Can Test Results postive L Neural Special Tests- Upper Body Median Nerve Tension Test Results neg Radial Nerve Tension Test Results neg Ulnar Nerve Tension Test Results neg PT-OP-M Strength Start: 03/28/19 07:28 Freq: Status: Active Protocol: Document 03/28/19 13:00 MT (Rec: 03/28/19 13:47 MT [id number]) Cervical Spine Strength Cervical Spine Manual Muscle Testing Testing Position Sitting Flexion (C1-2) 4 Good Extension 5 Normal Rotation Left 4 Good Rotation Right 5 Normal Lateral Flexion Left (C3) 5 Normal Lateral Flexion Right (C3) 5 Normal Reason Not Measured Pain PT-OP-Q Treatments Start: 03/28/19 07:28 Freq: Status: Active Protocol: Document 05/03/19 11:15 MT (Rec: 05/03/19 12:59 MT [id number]) Therapeutic Exercises Sitting Exercises 1 Sitting Exercise Name UT/ levator scap stretch Reps/Minutes 30 seconds Standing Exercises scaption Standing Exercise Name pull apart t band with shoulder flexion Side bilateral Resistance L1 Reps/Minutes 15 1 Standing Exercise Name t band rows and pull downs Resistance #2 t band Reps/Minutes 10 Comments vc posture Therapeutic Activity Therapeutic Activity bed mobility Name log roll technique Comments pt instructed and cued during practice of log roll technique to get out of bed with less pain and pressure to hip and shoulder. Pt also educated in sleeping position for least aggravation of symptoms. Manual Therapy Treatment Soft Tissue Mobilization T/S Body Location L thoracic paraspinals, infraspinatus, rhomboids Mobilization Type Oscillations,Rolling,Strumming ,Sustained Pressure Intensity/Depth Moderate Body Position Supine 1 Body Location B UT, LS, suboccipitals, paraspinals, SCM Mobilization Type Myofascial Release, Oscillations,Rolling,Strumming ,Sustained Pressure Intensity/Depth Moderate Body Position Supine PT-OP-T Assessment and Plan Start: 03/28/19 07:28 Freq: Status: Active Protocol: Document 05/03/19 11:15 MT (Rec: 05/03/19 12:59 MT [id number]) Physical Therapy Assessment Goals NDI Shelter Goal (LTG) pt will decrease her NDI score to 6/50 LTG Duration 05/28/19 strength Impairment impaired neck strength Short Term Goal (STG) pt will be compliant with HEP for neck and postural strengthening exercises STG Duration 04/27/19 Shelter Goal (LTG) Pt will increase neck strength to 5/5 in all directions LTG Duration 05/28/19 posture Senior Database Engineer Goal (LTG) pt will demonstrate improved posture with minimal deviations for improved activity tolerance for work and daily activities LTG Duration 05/28/19 pain Impairment neck pain Short Term Goal (STG) pt will decrease neck pain to 3/10 with daily activity STG Duration 04/27/19 Senior Database Engineer Goal (LTG) pt will be able to complete a full shift at work without aggravation of symptoms LTG Duration 05/28/19 Assessment Summary Assessment Pt was able to perform log roll technique with less aggravation of shoulder and hip symptoms, so she was told to start incorporating that with getting out of bed. She was able to get greater neck ROM with SB and rotation to the L with report of less pain following STM to cervical and upper thoracis paraspinals and scalenes. Physical Therapy Plan Frequency and Duration Frequency of Treatment 2x/Week Duration of Treatment 2 months Plan of Care Start Date 03/28/19 Plan of Care End Date 05/28/19 Next Visit Focus/Plan Next Note Type Treatment Note Next Visit Plan continue to review HEP for technique, progress HEP for scapular stability and neck strength/ROM, begin working on standing posture, PNF with mass rolling
--- NOTE | 2019-05-10 19:02 | PT.OTN ---
Current Diagnoses Pain in left shoulder (05/10/19) Cervicalgia (05/10/19) Abnormal posture (05/10/19) Weakness (05/10/19) Physical Therapy Treatment Note PT-OP-A Visit Information Start: 03/28/19 07:28 Freq: Status: Active Protocol: Document 05/10/19 11:17 MT (Rec: 05/10/19 18:52 MT [id number]) Out-Patient Physical Therapy Visit Information Visit Information Visit Type Treatment Note Visit Start Time 11:18 Visit Stop Time 12:01 Total Visit Minutes 43 Visit Number 7 Number of RIPENING ROOM HAND Visits 0 PT-OP-B Current Condition Start: 03/28/19 07:28 Freq: Status: Active Protocol: Document 03/28/19 13:00 MT (Rec: 03/28/19 13:47 MT [id number]) Current Condition History of Current Condition History of Current Condition Went ot see Dr. Sparks for her shoulder and he told her she has tendonitis in her rotator cuff of left shoulder. She works at [employer] and has not been able to lift anything above her head above her head. She has taken time off work (she has 3 weeks) and her shoulder got better through that rest period. Pt reports pain about 3 inches down from base of neck. She was seen for a concussion. At recent visit, took x-ray and found compression fracture in cevical spine but was unsure about how termite treater that compression was from. About 5 years ago, pt had a heavy box fall directly onto her head and she was seen for a concussion, which she thought may be where the compression fracture might have come from. She has history of sciatica. She stated that she woke up one morning in October and the pain in her neck was there. Neck pain seems to coincide with the L shoulder pain, but is less constant than the shoulder pain. Pt reports that the pain used to go down her arm about long term, but does not do that as much. Pt was told by doctor to follow up after PT. 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 However, she feels like overall her pain has [place] less and she feels like she is starting to notice some improvement. She thinks that the log rolling technique is helping with her morning pain. PT-OP-F Manual Assessment Start: 03/28/19 07:28 Freq: Status: Active Protocol: Document 03/28/19 13:00 MT (Rec: 03/28/19 13:47 MT [id number]) Manual Assessments Soft Tissue Assessment Soft Tissue Mobility Assessment pain along paraspinals at C-T junction, L UT tenderness & tightness PT-OP-J Posture/Palpation/Skin Start: 03/28/19 07:28 Freq: Status: Active Protocol: Document 03/28/19 13:00 MT (Rec: 03/28/19 13:47 MT [id number]) Posture Evaluation Delia Postural Classification System Delia Postural Classifications Posterior/Anterior Elbow Flexion Test 0 Comments Posture Comments Ant sheared pelvis; L shoulder higher than R, bilateral shoulders rounding forward in standing PT-OP-K Range of Motion Start: 03/28/19 07:28 Freq: Status: Active Protocol: Document 03/28/19 13:00 MT (Rec: 03/28/19 13:47 MT [id number]) Cervical Spine Range of Motion Cervical Spine Active Flexion 33 Extension 55 Rotation Left 58 Rotation Right 34 Lateral Flexion Left 46 Lateral Flexion Right 42 Comments pain w/flex; pain in L UT region w/L SB; pain in R side w/rotation B described as a stretching feeling Shoulder Goniometric Range of Motion Shoulder Right Active Shoulder ROM WFL Yes Testing Position Standing Flexion 154 Abduction 130 External Rotation at 0 degrees Abduction 62 Internal Rotation Behind Back (text) T7 Left Active Shoulder ROM WFL No Testing Position Standing Flexion 86 Abduction 84 External Rotation at 0 degrees Abduction 50 Internal Rotation Behind Back (text) T10 PT-OP-L Special Tests Start: 03/28/19 07:28 Freq: Status: Active Protocol: Document 03/28/19 13:00 MT (Rec: 03/28/19 13:47 MT [id number]) Special Tests Cervical Spine Special Tests Foraminal Compression Test Results aggravated sx in neck Traction Test Results relief of neck sx Spurling's Test Test Results pain in neck; stretching w/SB compression Shoulder Special Tests Neer Impingement Test Results positive L Christianson Farhad Impingement Test Results positive L Empty Can Test Results postive L Neural Special Tests- Upper Body Median Nerve Tension Test Results neg Radial Nerve Tension Test Results neg Ulnar Nerve Tension Test Results neg PT-OP-M Strength Start: 03/28/19 07:28 Freq: Status: Active Protocol: Document 03/28/19 13:00 MT (Rec: 03/28/19 13:47 MT [id number]) Cervical Spine Strength Cervical Spine Manual Muscle Testing Testing Position Sitting Flexion (C1-2) 4 Good Extension 5 Normal Rotation Left 4 Good Rotation Right 5 Normal Lateral Flexion Left (C3) 5 Normal Lateral Flexion Right (C3) 5 Normal Reason Not Measured Pain PT-OP-Q Treatments Start: 03/28/19 07:28 Freq: Status: Active Protocol: Document 05/10/19 11:17 MT (Rec: 05/10/19 18:52 MT [id number]) Therapeutic Exercises Supine Exercises chin tuck Reps/Minutes 20 Comments cueing for proper motion Sitting Exercises 1 Sitting Exercise Name UT/ levator scap stretch Reps/Minutes 30 seconds Comments cueing for avoiding compensations Standing Exercises serratus punches Standing Exercise Name serratus punches at wall Side bilateral Reps/Minutes 20 1 Standing Exercise Name t band rows and pull downs Resistance #2 t band Reps/Minutes 10 Comments required cueing for proper motion posture Standing Exercise Name wall posture Side bilateral Comments added horizontal add/abd Manual Therapy Treatment Soft Tissue Mobilization 1 Body Location B UT, LS, suboccipitals, paraspinals, SCM Mobilization Type Myofascial Release, Oscillations,Rolling,Strumming ,Sustained Pressure Intensity/Depth Moderate Body Position Supine Neuro Re-Education Treatment Other Activities PNF Details shoulder girdle PNF Comments mass rolling/mass ext 1. rhythmic initiation 2. combination of isotonics 3. concentric reversals PT-OP-T Assessment and Plan Start: 03/28/19 07:28 Freq: Status: Active Protocol: Document 05/10/19 11:17 MT (Rec: 05/10/19 18:52 MT [id number]) Physical Therapy Assessment Goals NDI Correction Goal (LTG) pt will decrease her NDI score to 6/50 LTG Duration 05/28/19 strength Impairment impaired neck strength Short Term Goal (STG) pt will be compliant with HEP for neck and postural strengthening exercises STG Duration 04/27/19 Excelsior Picker Goal (LTG) Pt will increase neck strength to 5/5 in all directions LTG Duration 05/28/19 posture Correction Goal (LTG) pt will demonstrate improved posture with minimal deviations for improved activity tolerance for work and daily activities LTG Duration 05/28/19 pain Impairment neck pain Short Term Goal (STG) pt will decrease neck pain to 3/10 with daily activity STG Duration 04/27/19 Correction Goal (LTG) pt will be able to complete a full shift at work without aggravation of symptoms LTG Duration 05/28/19 Assessment Summary Assessment Reviwed pt's HEP. She still requires cueing for technique and slowing down her movements . Pt also required cueing for avoiding compensation with her streches, as she was rotating her head excessivley during her UT stretch. Pt has been able to tolerate much more pressure with STM. She was also able to tolerate PNF technique without c/o pain for mass rolling and extension, but requires frequent cueing for controlling movements and isolating desired motion. Physical Therapy Plan Frequency and Duration Frequency of Treatment 2x/Week Duration of Treatment 2 months Plan of Care Start Date 03/28/19 Plan of Care End Date 05/28/19 Next Visit Focus/Plan Next Note Type Progress Note Next Visit Plan continue to review HEP for technique, progress HEP for scapular stability and neck strength/ROM, begin working on standing posture, PNF with mass rolling
--- NOTE | 2019-05-18 12:10 | PT.OTN ---
Current Diagnoses Pain in left shoulder (05/18/19) Cervicalgia (05/18/19) Abnormal posture (05/18/19) Weakness (05/18/19) Physical Therapy Treatment Note PT-OP-A Visit Information Start: 03/28/19 07:28 Freq: Status: Active Protocol: Document 05/18/19 11:18 [facility] (Rec: 05/18/19 12:10 [facility] [id number]) Out-Patient Physical Therapy Visit Information Visit Information Visit Type Progress Note Visit Start Time 11:19 Visit Stop Time 11:59 Total Visit Minutes 40 Visit Number 8 Number of STEAMTABLE ATTENDANT RAILROAD Visits 0 PT-OP-B Current Condition Start: 03/28/19 07:28 Freq: Status: Active Protocol: Document 03/28/19 13:00 MT (Rec: 03/28/19 13:47 MT [id number]) Current Condition History of Current Condition History of Current Condition Went ot see Dr. Spakrs for her shoulder and he told her she has tendonitis in her rotator cuff of left shoulder. She works at [employer] and has not been able to lift anything above her head above her head. She has taken time off work (she has 3 weeks) and her shoulder got better through that rest period. Pt reports pain about 3 inches down from base of neck. She was seen for a concussion. At recent visit, took x-ray and found compression fracture in cevical spine but was unsure about how prison that compression was from. About 5 years ago, pt had a heavy box fall directly onto her head and she was seen for a concussion, which she thought may be where the compression fracture might have come from. She has history of sciatica. She stated that she woke up one morning in October and the pain in her neck was there. Neck pain seems to coincide with the L shoulder pain, but is less constant than the shoulder pain. Pt reports that the pain used to go down her arm about intermediate, but does not do that as much. Pt was told by doctor to follow up after PT. Treatment Goals Patient/Caregiver Goals decrease pain, be able to return to work PT-OP-C Subjective Start: 03/28/19 07:28 Freq: Status: Active Protocol: Document 05/18/19 11:18 [facility] (Rec: 05/18/19 12:10 [facility] [id number]) OP-PT Subjective Patient Comments Patient Comments pt reports afte rworking the past 2 days her pain is not as bad as it typically is after working 2 dsays in a row. PT-OP-F Manual Assessment Start: 03/28/19 07:28 Freq: Status: Active Protocol: Document 03/28/19 13:00 MT (Rec: 03/28/19 13:47 MT [id number]) Manual Assessments Soft Tissue Assessment Soft Tissue Mobility Assessment pain along paraspinals at C-T junction, L UT tenderness & tightness PT-OP-J Posture/Palpation/Skin Start: 03/28/19 07:28 Freq: Status: Active Protocol: Document 03/28/19 13:00 MT (Rec: 03/28/19 13:47 MT [id number]) Posture Evaluation Delia Postural Classification System Delia Postural Classifications Posterior/Anterior Elbow Flexion Test 0 Comments Posture Comments Ant sheared pelvis; L shoulder higher than R, bilateral shoulders rounding forward in standing PT-OP-K Range of Motion Start: 03/28/19 07:28 Freq: Status: Active Protocol: Document 05/18/19 11:18 [facility] (Rec: 05/18/19 12:10 [facility] [id number]) Cervical Spine Range of Motion Cervical Spine Active Flexion 60 Extension 54 Rotation Left 64 Rotation Right 70 Lateral Flexion Left 43 Lateral Flexion Right 42 Comments pain w/ L rotation only Shoulder Goniometric Range of Motion Shoulder Left Active Flexion 81 Abduction 82 PT-OP-L Special Tests Start: 03/28/19 07:28 Freq: Status: Active Protocol: Document 03/28/19 13:00 MT (Rec: 03/28/19 13:47 MT [id number]) Special Tests Cervical Spine Special Tests Foraminal Compression Test Results aggravated sx in neck Traction Test Results relief of neck sx Spurling's Test Test Results pain in neck; stretching w/SB compression Shoulder Special Tests Neer Impingement Test Results positive L Christianson Farhad Impingement Test Results positive L Empty Can Test Results postive L Neural Special Tests- Upper Body Median Nerve Tension Test Results neg Radial Nerve Tension Test Results neg Ulnar Nerve Tension Test Results neg PT-OP-M Strength Start: 03/28/19 07:28 Freq: Status: Active Protocol: Document 05/18/19 11:18 [facility] (Rec: 05/18/19 12:10 [facility] [id number]) Cervical Spine Strength Cervical Spine Manual Muscle Testing Testing Position Sitting Flexion (C1-2) 4+ Good+ Extension 5 Normal Rotation Left 5 Normal Rotation Right 5 Normal Lateral Flexion Left (C3) 5 Normal Lateral Flexion Right (C3) 5 Normal PT-OP-Q Treatments Start: 03/28/19 07:28 Freq: Status: Active Protocol: Document 05/18/19 11:18 [facility] (Rec: 05/18/19 12:10 [facility] [id number]) Therapeutic Exercises Standing Exercises posture Standing Exercise Name wall posture Side bilateral Reps/Minutes 30 sec hold x2 Comments w/shoulder ext in about 30 deg abd position Therapeutic Activity Therapeutic Activity sleep position Name s/l & supine Manual Therapy Treatment Soft Tissue Mobilization 1 Body Location B UT, LS, suboccipitals, paraspinals, SCM Mobilization Type Myofascial Release, Oscillations,Rolling,Strumming ,Sustained Pressure Intensity/Depth Moderate Body Position Supine PT-OP-T Assessment and Plan Start: 03/28/19 07:28 Freq: Status: Active Protocol: Document 05/18/19 11:18 [facility] (Rec: 05/18/19 12:10 [facility] [id number]) Physical Therapy Assessment Goals NDI Auto Brake Mechanic Goal (LTG) pt will decrease her NDI score to 6/50 05/18-cont limit likely d/t L shoulder impairments LTG Duration 07/19/19 strength Impairment impaired neck strength Short Term Goal (STG) pt will be compliant with HEP for neck and postural strengthening exercises STG Duration achieved progressing as needed Auto Brake Mechanic Goal (LTG) Pt will increase neck strength to 5/5 in all directions 05/18-significnatly improved, no pain, only flex limited to 4+/5 LTG Duration 05/28/19 posture Auto Brake Mechanic Goal (LTG) pt will demonstrate improved posture with minimal deviations for improved activity tolerance for work and daily activities 05/18-improving LTG Duration 06/17/19 pain Impairment neck pain Short Term Goal (STG) pt will decrease neck pain to 3/10 with daily activity 05/18-410 improving with less constant where as before 10/31 STG Duration 06/07/19 Jail Goal (LTG) pt will be able to complete a full shift at work without aggravation of symptoms 05/18-symptoms no longer as bad after a shift LTG Duration 07/19/19 Assessment Summary Assessment Pt is making excellent progrss in pain, ROM and strength of neck. She cont to improve and at this time is liekly most limited by her L shoulder which d/t pain and dysfunction creating inc use of UT & cervicall mm for lifitng of LUE, which likely causes pain. Pt would benefit from cont PT to address cont deficits of neck and sent note to re: L shoulder issue questioning possible referal. Physical Therapy Plan Frequency and Duration Frequency of Treatment 2x/Week Duration of Treatment 2 months Plan of Care Start Date 05/18/19 Plan of Care End Date 07/19/19 Therapeutic Interventions Therapeutic Interventions Aquatic Therapy,Coordination Training,Home Exercise Program ,Joint Mobilizations,Manual Therapy,Neuromuscular Re- education,Patient/Caregiver Education,Self-Care/Home Management,Soft Tissue Mobilization,Taping, Therapeutic Activities, Therapeutic Exercises Modalities Cold Pack/Ice Massage,Electric Stimulation,Hot Packs, Infrared Therapy,Traction- Mechanical,Ultrasound Next Visit Focus/Plan Next Note Type Treatment Note Next Visit Plan continue to review HEP for technique, progress HEP for scapular stability and neck strength/ROM, begin working on standing posture, PNF with mass rolling
--- NOTE | 2019-05-18 12:11 | PT.OPPOC ---
Current Diagnoses Pain in left shoulder (05/18/19) Cervicalgia (05/18/19) Abnormal posture (05/18/19) Weakness (05/18/19) Visit Care Team Role Provider Type Kathryn Brandon MD Attending Provider Physician Primary Care Provider Specialty: Family Practice Address: [address] [place] [address], [facility] [place], [address] Email: [email or web address] Plan Of Care PT-OP-T Assessment and Plan Start: 03/28/19 07:28 Freq: Status: Active Protocol: Document 05/18/19 11:18 [facility] (Rec: 05/18/19 12:10 [facility] [id number]) Physical Therapy Assessment Goals NDI Longterm Goal (LTG) pt will decrease her NDI score to 6/50 05/18-cont limit likely d/t L shoulder impairments LTG Duration 07/19/19 strength Impairment impaired neck strength Short Term Goal (STG) pt will be compliant with HEP for neck and postural strengthening exercises STG Duration achieved progressing as needed Wrap Checker Goal (LTG) Pt will increase neck strength to 5/5 in all directions 05/18-significnatly improved, no pain, only flex limited to 4+/5 LTG Duration 05/28/19 posture Longterm Goal (LTG) pt will demonstrate improved posture with minimal deviations for improved activity tolerance for work and daily activities 05/18-improving LTG Duration 06/17/19 pain Impairment neck pain Short Term Goal (STG) pt will decrease neck pain to 3/10 with daily activity 05/18-4/10 improving with less constant where as before 10/31 STG Duration 06/07/19 Longterm Goal (LTG) pt will be able to complete a full shift at work without aggravation of symptoms 05/18-symptoms no longer as bad after a shift LTG Duration 07/19/19 Assessment Summary Assessment Pt is making excellent progrss in pain, ROM and strength of neck. She cont to improve and at this time is liekly most limited by her L shoulder which d/t pain and dysfunction creating inc use of UT & cervicall mm for lifitng of LUE, which likely causes pain. Pt would benefit from cont PT to address cont deficits of neck and sent note to re: L shoulder issue questioning possible referal. Physical Therapy Plan Frequency and Duration Frequency of Treatment 1-2x/Week Duration of Treatment 2 months Plan of Care Start Date 05/18/19 Plan of Care End Date 07/19/19 Therapeutic Interventions Therapeutic Interventions Aquatic Therapy,Coordination Training,Home Exercise Program ,Joint Mobilizations,Manual Therapy,Neuromuscular Re- education,Patient/Caregiver Education,Self-Care/Home Management,Soft Tissue Mobilization,Taping, Therapeutic Activities, Therapeutic Exercises Modalities Cold Pack/Ice Massage,Electric Stimulation,Hot Packs, Infrared Therapy,Traction- Mechanical,Ultrasound Next Visit Focus/Plan Next Note Type Treatment Note Next Visit Plan continue to review HEP for technique, progress HEP for scapular stability and neck strength/ROM, begin working on standing posture, PNF with mass rolling Plan of Care Dates Plan of Care Start Date 05/18/19 Plan of Care End Date 07/19/19
--- NOTE | 2019-05-22 18:57 | PT.OTRE ---
Current Diagnoses Pain in left shoulder (05/22/19) Cervicalgia (05/22/19) Abnormal posture (05/22/19) Weakness (05/22/19) Past Medical History (Last Reviewed 02/08/19 @ 19:26 by Fabian Boucher MD) Chicken pox (Resolved 1962) CTS (carpal tunnel syndrome) (Resolved 2007) Early onset macular degeneration (Chronic 2009) Essential hypertension (Chronic) Infertility (Resolved 1980) Irregular periods/menstrual cycles (Resolved 1974) Measles (Resolved 1962) Osteoarthritis (Chronic 2010) Pneumonia (Resolved 2014) Retinal detachment (Resolved 2009) Rubella (Resolved 1962) Surgical History (Last Reviewed 02/08/19 @ 19:26 by Fabian Boucher MD) Anesthesia (Resolved) History of carpal tunnel repair (Resolved 09/2009) Status post delivery (Resolved 11/05/84) Visit Care Team Role Provider Type Kathryn Brandon MD Attending Provider Physician Primary Care Provider Specialty: [facility] Address: [address] [place] [address], [facility] Email: [email or web address] Physical Therapy Re-Evaluation PT-OP-A Visit Information Start: 03/28/19 07:28 Freq: Status: Active Protocol: Document 05/22/19 11:24 [facility] (Rec: 05/22/19 13:00 [facility] [id number]) Out-Patient Physical Therapy Visit Information Visit Information Visit Type Re-Evaluation Visit Start Time 11:21 Visit Stop Time 12:10 Total Visit Minutes 49 Visit Number 9 Number of INTERPRETER FOR THE DEAF Visits 0 PT-OP-B Current Condition Start: 03/28/19 07:28 Freq: Status: Active Protocol: Document 05/22/19 11:24 [facility] (Rec: 05/22/19 11:38 [facility] [id number]) Current Condition History of Current Condition Onset Date October Current Complaints L shoulder pain & neck pain History of Current Condition 05/22-L and shoulder pain started at the same time with gradual onset. Pt reports work aggrevates the pain the most. IE:Went ot see Dr. Sparks for her shoulder and he told her she has tendonitis in her rotator cuff of left shoulder. She works at [employer] and has not been able to lift anything above her head above her head. She has taken time off work (she has 3 weeks) and her shoulder got better through that rest period. Pt reports pain about 3 inches down from base of neck. She was seen for a concussion. At recent Dr. visit, took x-ray and found compression fracture in cevical spine but was unsure about how penitent[facility] that compression was from. About 5 years ago, pt had a heavy box fall directly onto her head and she was seen for a concussion, which she thought may be where the compression fracture might have come from. She has history of sciatica. She stated that she woke up one morning in October and the pain in her neck was there. Neck pain seems to coincide with the L shoulder pain, but is less constant than the shoulder pain. Pt reports that the pain used to go down her arm about skilled nursing, but does not do that as much. Pt was told by doctor to follow up after PT. Treatment Goals Patient/Caregiver Goals decrease pain, be able to work without pain, be able to lift again. PT-OP-C Subjective Start: 03/28/19 07:28 Freq: Status: Active Protocol: Document 05/22/19 11:24 [facility] (Rec: 05/22/19 11:38 [facility] [id number]) OP-PT Subjective Patient Comments Patient Comments Pt reprots MD sent referal OP-PT Pain Assessment Location shoulder Pain Location Details sup shoulder & UT Intensity 6 Scale Used Numeric (1 - 10) Description Aching,Sharp,With Movement Description- Other worst:8/10, always there light ache Frequency Daily Pain Duration once gets out of position is better Radiating Location in usmmer in arm but not as much now Pain Aggravating Factors ADL's,Lifting Other Pain Aggravating Factors reaching Pain Alleviating Factors Cold,Inactivity PT-OP-F Manual Assessment Start: 03/28/19 07:28 Freq: Status: Active Protocol: Document 05/22/19 11:24 [facility] (Rec: 05/22/19 18:56 [facility] [id number]) Manual Assessments Soft Tissue Assessment Soft Tissue Mobility Assessment tenderness to L pec, biceps, UT, LS PT-OP-J Posture/Palpation/Skin Start: 03/28/19 07:28 Freq: Status: Active Protocol: Document 03/28/19 13:00 [facility] (Rec: 03/28/19 13:47 [facility] [id number]) Posture Evaluation [facility] Postural Classification System [facility] Postural Classifications Posterior/Anterior Elbow Flexion Test 0 Comments Posture Comments Ant sheared pelvis; L shoulder higher than R, bilateral shoulders rounding forward in standing PT-OP-K Range of Motion Start: 03/28/19 07:28 Freq: Status: Active Protocol: Document 05/22/19 11:24 [facility] (Rec: 05/22/19 11:31 [facility] [id number]) Cervical Spine Range of Motion Cervical Spine Active Flexion 60 Extension 54 Rotation Left 64 Rotation Right 70 Lateral Flexion Left 43 Lateral Flexion Right 42 Comments pain w/ L rotation only Shoulder Goniometric Range of Motion Shoulder Measured in Degrees Left Passive Flexion 112 Abduction 82 External Rotation at 45 degrees 51 Abduction External Rotation at 0 degrees Abduction 57 Internal Rotation 33 Left Active Flexion 95 Extension 33 Abduction 71 External Rotation at 0 degrees Abduction 53 Internal Rotation Behind Back (text) mid sacrum PT-OP-L Special Tests Start: 03/28/19 07:28 Freq: Status: Active Protocol: Document 05/22/19 11:24 [facility] (Rec: 05/22/19 11:31 [facility] [id number]) Special Tests Shoulder Special Tests Sulcus Test Results neg AC Joint Compression Test Results neg [place] Test Test Results positive L Speed's Biceps Test Results pain but less pain then with Luna testing Neer Impingement Test Results positive L Christianson Farhad Impingement Test Results positive L Empty Can Test Results positive L PT-OP-M Strength Start: 03/28/19 07:28 Freq: Status: Active Protocol: Document 05/22/19 11:24 [facility] (Rec: 05/22/19 11:31 [facility] [id number]) Cervical Spine Strength Cervical Spine Manual Muscle Testing Testing Position Sitting Flexion (C1-2) 4+ Good+ Extension 5 Normal Rotation Left 5 Normal Rotation Right 5 Normal Lateral Flexion Left (C3) 5 Normal Lateral Flexion Right (C3) 5 Normal Reason Not Measured Pain Shoulder Strength Shoulder Manual Muscle Testing Right External Rotation 3 Fair Internal Rotation 3+ Fair+ Comments pt unable to go through gravity for flex, abd, ext ROM so less than 3/5 Left Flexion 4+ Good+ Extension 4 Good Abduction (C5) 5 Normal External Rotation 4- Good- Internal Rotation 5 Normal Elbow/Forearm Strength Elbow and Forearm Manual Muscle Testing Left Flexion (C6) 4 Good Supination 3+ Fair+ Reason Not Measured Pain PT-OP-Q Treatments Start: 03/28/19 07:28 Freq: Status: Active Protocol: Document 05/22/19 11:24 [facility] (Rec: 05/22/19 13:00 [facility] [id number]) Manual Therapy Treatment Soft Tissue Mobilization pec Body Location L pec & biceps Mobilization Type Rolling,Strumming Intensity/Depth Moderate Body Position Supine PT-OP-R Modalities Start: 03/28/19 07:28 Freq: Status: Active Protocol: Document 05/22/19 11:24 [facility] (Rec: 05/22/19 13:00 [facility] [id number]) Hot Pack/Cold Pack Treatment Cold Pack Location L Patient Position Hooklying Treatment Duration (minutes) 10 PT-OP-T Assessment and Plan Start: 03/28/19 07:28 Freq: Status: Active Protocol: Document 05/22/19 11:24 [facility] (Rec: 05/22/19 18:55 [facility] [id number]) Physical Therapy Assessment Goals shoulder strength Short Term Goal (STG) Pt will be indep with HEP. STG Duration 06/22/19 Process Control Manager Goal (LTG) Pt will have equal UE strength B in order to allow pt to do all lifting activities at home and work. LTG Duration 07/22/19 shoulder ROM Short Term Goal (STG) Pt will improve flex and abd ROM to 120 deg. STG Duration 06/22/19 Penitentiary Goal (LTG) Pt will have WNL ROM of L shoulder in order to do reaching activities required by work. LTG Duration 07/22/19 NDI Process Control Manager Goal (LTG) pt will decrease her NDI score to 6/50 05/18-cont limit likely d/t L shoulder impairments LTG Duration 07/19/19 strength Impairment impaired neck strength Short Term Goal (STG) pt will be compliant with HEP for neck and postural strengthening exercises STG Duration achieved progressing as needed Penitentiary Goal (LTG) Pt will increase neck strength to 5/5 in all directions 05/18-significnatly improved, no pain, only flex limited to 4+/5 LTG Duration 05/28/19 posture Penitentiary Goal (LTG) pt will demonstrate improved posture with minimal deviations for improved activity tolerance for work and daily activities 05/18-improving LTG Duration 06/17/19 pain Impairment neck pain Short Term Goal (STG) pt will decrease neck pain to 3/10 with daily activity 05/18-4/10 improving with less constant where as before 10/31 STG Duration 06/07/19 Penitentiary Goal (LTG) pt will be able to complete a full shift at work without aggravation of symptoms 05/18-symptoms no longer as bad after a shift LTG Duration 07/19/19 Assessment Summary Assessment Pt presents for cont treatment of neck pain which ahs improved with therapy and with new referal for left shoulder pain. Based on s/s and special tests, it is likely pt is experiencing biceps & rotator cuff tendinopathy and impingment. She would benefit from skilled PT in order to address this deficits and progress her back to being painfree at work and with ADLs . Physical Therapy Plan Frequency and Duration Frequency of Treatment 1-2x/week Duration of Treatment 2 months Plan of Care Start Date 05/22/19 Plan of Care End Date 07/22/19 Therapeutic Interventions Therapeutic Interventions Aquatic Therapy,Coordination Training,Home Exercise Program ,Joint Mobilizations,Manual Therapy,Neuromuscular Re- education,Patient/Caregiver Education,Self-Care/Home Management,Soft Tissue Mobilization,Taping, Therapeutic Activities, Therapeutic Exercises Modalities Cold Pack/Ice Massage,Electric Stimulation,Hot Packs, Infrared Therapy,Iontophoresis ,Traction- Mechanical, Ultrasound Next Visit Focus/Plan Next Note Type Treatment Note Next Visit Plan PNF, shoulder AAROM exercises, GH & AC joint mobs
--- NOTE | 2019-06-20 18:08 | PT.OTN ---
Current Diagnoses Pain in left shoulder (06/20/19) Cervicalgia (06/20/19) Abnormal posture (06/20/19) Weakness (06/20/19) Physical Therapy Treatment Note PT-OP-A Visit Information Start: 03/28/19 07:28 Freq: Status: Active Protocol: Document 06/20/19 11:21 [facility] (Rec: 06/20/19 18:06 [facility] [id number]) Out-Patient Physical Therapy Visit Information Visit Information Visit Type Treatment Note Visit Start Time 11:17 Visit Stop Time 11:57 Total Visit Minutes 40 Visit Number 10 Number of WEB DESIGNER Visits 0 PT-OP-B Current Condition Start: 03/28/19 07:28 Freq: Status: Active Protocol: Document 05/22/19 11:24 [facility] (Rec: 05/22/19 11:38 [facility] [id number]) Current Condition History of Current Condition Onset Date October Current Complaints L shoulder pain & neck pain History of Current Condition 05/22-L and shoulder pain started at the same time with gradual onset. Pt reports work aggrevates the pain the most. IE:Went ot see Dr. Sparks for her shoulder and he told her she has tendonitis in her rotator cuff of left shoulder. She works at [employer] and has not been able to lift anything above her head above her head. She has taken time off work (she has 3 weeks) and her shoulder got better through that rest period. Pt reports pain about 3 inches down from base of neck. She was seen for a concussion. At recent visit, took x-ray and found compression fracture in cevical spine but was unsure about how shelter that compression was from. About 5 years ago, pt had a heavy box fall directly onto her head and she was seen for a concussion, which she thought may be where the compression fracture might have come from. She has history of sciatica. She stated that she woke up one morning in October and the pain in her neck was there. Neck pain seems to coincide with the L shoulder pain, but is less constant than the shoulder pain. Pt reports that the pain used to go down her arm about snf, but does not do that as much. Pt was told by doctor to follow up after PT. Treatment Goals Patient/Caregiver Goals decrease pain, be able to work without pain, be able to lift again. PT-OP-C Subjective Start: 03/28/19 07:28 Freq: Status: Active Protocol: Document 06/20/19 11:21 [facility] (Rec: 06/20/19 18:06 [facility] [id number]) OP-PT Subjective Patient Comments Patient Comments Pt was doing well when off work d/t being sick but since working agin L shoulder is aggrevated again. PT-OP-F Manual Assessment Start: 03/28/19 07:28 Freq: Status: Active Protocol: Document 05/22/19 11:24 [facility] (Rec: 05/22/19 18:56 [facility] [id number]) Manual Assessments Soft Tissue Assessment Soft Tissue Mobility Assessment tenderness to L pec, biceps, UT, LS PT-OP-J Posture/Palpation/Skin Start: 03/28/19 07:28 Freq: Status: Active Protocol: Document 03/28/19 13:00 [facility] (Rec: 03/28/19 13:47 [facility] [id number]) Posture Evaluation [facility] Postural Classification System [facility] Postural Classifications Posterior/Anterior Elbow Flexion Test 0 Comments Posture Comments Ant sheared pelvis; L shoulder higher than R, bilateral shoulders rounding forward in standing PT-OP-K Range of Motion Start: 03/28/19 07:28 Freq: Status: Active Protocol: Document 05/22/19 11:24 [facility] (Rec: 05/22/19 11:31 [facility] [id number]) Cervical Spine Range of Motion Cervical Spine Active Flexion 60 Extension 54 Rotation Left 64 Rotation Right 70 Lateral Flexion Left 43 Lateral Flexion Right 42 Comments pain w/ L rotation only Shoulder Goniometric Range of Motion Shoulder Left Passive Flexion 112 Abduction 82 External Rotation at 45 degrees 51 Abduction External Rotation at 0 degrees Abduction 57 Internal Rotation 33 Left Active Flexion 95 Extension 33 Abduction 71 External Rotation at 0 degrees Abduction 53 Internal Rotation Behind Back (text) mid sacrum PT-OP-L Special Tests Start: 03/28/19 07:28 Freq: Status: Active Protocol: Document 05/22/19 11:24 [facility] (Rec: 05/22/19 11:31 [facility] [id number]) Special Tests Shoulder Special Tests Sulcus Test Results neg AC Joint Compression Test Results neg [place] Test Test Results positive L Speed's Biceps Test Results pain but less pain then with Luna testing Neer Impingement Test Results positive L Christianson Farhad Impingement Test Results positive L Empty Can Test Results positive L PT-OP-M Strength Start: 03/28/19 07:28 Freq: Status: Active Protocol: Document 05/22/19 11:24 [facility] (Rec: 05/22/19 11:31 [facility] [id number]) Cervical Spine Strength Cervical Spine Manual Muscle Testing Testing Position Sitting Flexion (C1-2) 4+ Good+ Extension 5 Normal Rotation Left 5 Normal Rotation Right 5 Normal Lateral Flexion Left (C3) 5 Normal Lateral Flexion Right (C3) 5 Normal Reason Not Measured Pain Shoulder Strength Shoulder Manual Muscle Testing Right External Rotation 3 Fair Internal Rotation 3+ Fair+ Comments pt unable to go through gravity for flex, abd, ext ROM so less than 3/5 Left Flexion 4+ Good+ Extension 4 Good Abduction (C5) 5 Normal External Rotation 4- Good- Internal Rotation 5 Normal Elbow/Forearm Strength Elbow and Forearm Manual Muscle Testing Left Flexion (C6) 4 Good Supination 3+ Fair+ Reason Not Measured Pain PT-OP-Q Treatments Start: 03/28/19 07:28 Freq: Status: Active Protocol: Document 06/20/19 11:21 [facility] (Rec: 06/20/19 18:06 [facility] [id number]) Therapeutic Exercises Supine Exercises 1 Supine Exercise Name AAROM ER & chest press Equipment Used tbar Reps/Minutes 15 Standing Exercises 2 Standing Exercise Name AAROm abd Side left Reps/Minutes 10 Comments comfortable range Manual Therapy Treatment Soft Tissue Mobilization pec Body Location L pec & biceps Mobilization Type Rolling,Strumming Intensity/Depth Moderate Body Position Supine 1 Body Location L UT, LS Mobilization Type Myofascial Release, Oscillations,Rolling,Strumming ,Sustained Pressure Intensity/Depth Moderate Body Position Supine Joint Mobilizations AC Joint ventral FM 1 Joint GH Direction distraction, inf, post glides PT-OP-R Modalities Start: 03/28/19 07:28 Freq: Status: Active Protocol: Document 05/22/19 11:24 [facility] (Rec: 05/22/19 13:00 [facility] [id number]) Hot Pack/Cold Pack Treatment Cold Pack Location L Patient Position Hooklying Treatment Duration (minutes) 10 PT-OP-T Assessment and Plan Start: 03/28/19 07:28 Freq: Status: Active Protocol: Document 06/20/19 11:21 [facility] (Rec: 06/20/19 18:08 [facility] [id number]) Physical Therapy Assessment Goals shoulder strength Short Term Goal (STG) Pt will be indep with HEP. STG Duration 06/22/19 Correction Goal (LTG) Pt will have equal UE strength B in order to allow pt to do all lifting activities at home and work. LTG Duration 07/22/19 shoulder ROM Short Term Goal (STG) Pt will improve flex and abd ROM to 120 deg. STG Duration 06/22/19 Supervisor Laundry Goal (LTG) Pt will have WNL ROM of L shoulder in order to do reaching activities required by work. LTG Duration 07/22/19 NDI Correction Goal (LTG) pt will decrease her NDI score to 6/50 05/18-cont limit likely d/t L shoulder impairments LTG Duration 07/19/19 strength Impairment impaired neck strength Short Term Goal (STG) pt will be compliant with HEP for neck and postural strengthening exercises STG Duration achieved progressing as needed Supervisor Laundry Goal (LTG) Pt will increase neck strength to 5/5 in all directions 05/18-significnatly improved, no pain, only flex limited to 4+/5 LTG Duration 05/28/19 posture Supervisor Laundry Goal (LTG) pt will demonstrate improved posture with minimal deviations for improved activity tolerance for work and daily activities 05/18-improving LTG Duration 06/17/19 pain Impairment neck pain Short Term Goal (STG) pt will decrease neck pain to 3/10 with daily activity 05/18-4/10 improving with less constant where as before 10/31 STG Duration 06/07/19 Supervisor Laundry Goal (LTG) pt will be able to complete a full shift at work without aggravation of symptoms 05/18-symptoms no longer as bad after a shift LTG Duration 07/19/19 Assessment Summary Assessment Pt did well with AAROm with cueing to stay in comfortable range. She was able to improve ER & IR after manual treatment with dec pain during motions passively Physical Therapy Plan Frequency and Duration Frequency of Treatment 1-2x/week Duration of Treatment 2 months Plan of Care Start Date 05/22/19 Plan of Care End Date 07/22/19 Therapeutic Interventions Therapeutic Interventions Aquatic Therapy,Coordination Training,Home Exercise Program ,Joint Mobilizations,Manual Therapy,Neuromuscular Re- education,Patient/Caregiver Education,Self-Care/Home Management,Soft Tissue Mobilization,Taping, Therapeutic Activities, Therapeutic Exercises Modalities Cold Pack/Ice Massage,Electric Stimulation,Hot Packs, Infrared Therapy,Iontophoresis ,Traction- Mechanical, Ultrasound Next Visit Focus/Plan Next Note Type Treatment Note Next Visit Plan PNF, shoulder AAROM exercises, GH & AC joint mobs
--- NOTE | 2019-06-28 09:02 | PT.OTN ---
Current Diagnoses Pain in left shoulder (06/28/19) Cervicalgia (06/28/19) Abnormal posture (06/28/19) Weakness (06/28/19) Physical Therapy Treatment Note PT-OP-A Visit Information Start: 03/28/19 07:28 Freq: Status: Active Protocol: Document 06/28/19 08:12 [facility] (Rec: 06/28/19 09:01 [facility] [id number]) Out-Patient Physical Therapy Visit Information Visit Information Visit Type Treatment Note Visit Start Time 08:15 Visit Stop Time 09:04 Total Visit Minutes 49 Visit Number 11 Number of INDUSTRIAL GAS FITTER Visits 0 PT-OP-B Current Condition Start: 03/28/19 07:28 Freq: Status: Active Protocol: Document 05/22/19 11:24 [facility] (Rec: 05/22/19 11:38 [facility] [id number]) Current Condition History of Current Condition Onset Date October Current Complaints L shoulder pain & neck pain History of Current Condition 05/22-L and shoulder pain started at the same time with gradual onset. Pt reports work aggrevates the pain the most. IE:Went ot see Dr. Sparks for her shoulder and he told her she has tendonitis in her rotator cuff of left shoulder. She works at [employer] and has not been able to lift anything above her head above her head. She has taken time off work (she has 3 weeks) and her shoulder got better through that rest period. Pt reports pain about 3 inches down from base of neck. She was seen for a concussion. At recent visit, took x-ray and found compression fracture in cevical spine but was unsure about how shelter that compression was from. About 5 years ago, pt had a heavy box fall directly onto her head and she was seen for a concussion, which she thought may be where the compression fracture might have come from. She has history of sciatica. She stated that she woke up one morning in October and the pain in her neck was there. Neck pain seems to coincide with the L shoulder pain, but is less constant than the shoulder pain. Pt reports that the pain used to go down her arm about long term, but does not do that as much. Pt was told by doctor to follow up after PT. Treatment Goals Patient/Caregiver Goals decrease pain, be able to work without pain, be able to lift again. PT-OP-C Subjective Start: 03/28/19 07:28 Freq: Status: Active Protocol: Document 06/28/19 08:12 [facility] (Rec: 06/28/19 09:01 [facility] [id number]) OP-PT Subjective Patient Comments Patient Comments Compliant with HEP. Notes sore today. She didn'ts leep well overnight PT-OP-F Manual Assessment Start: 03/28/19 07:28 Freq: Status: Active Protocol: Document 05/22/19 11:24 [facility] (Rec: 05/22/19 18:56 [facility] [id number]) Manual Assessments Soft Tissue Assessment Soft Tissue Mobility Assessment tenderness to L pec, biceps, UT, LS PT-OP-J Posture/Palpation/Skin Start: 03/28/19 07:28 Freq: Status: Active Protocol: Document 03/28/19 13:00 MT (Rec: 03/28/19 13:47 MT [id number]) Posture Evaluation [facility] Postural Classification System [facility] Postural Classifications Posterior/Anterior Elbow Flexion Test 0 Comments Posture Comments Ant sheared pelvis; L shoulder higher than R, bilateral shoulders rounding forward in standing PT-OP-K Range of Motion Start: 03/28/19 07:28 Freq: Status: Active Protocol: Document 05/22/19 11:24 [facility] (Rec: 05/22/19 11:31 [facility] [id number]) Cervical Spine Range of Motion Cervical Spine Active Flexion 60 Extension 54 Rotation Left 64 Rotation Right 70 Lateral Flexion Left 43 Lateral Flexion Right 42 Comments pain w/ L rotation only Shoulder Goniometric Range of Motion Shoulder Left Passive Flexion 112 Abduction 82 External Rotation at 45 degrees 51 Abduction External Rotation at 0 degrees Abduction 57 Internal Rotation 33 Left Active Flexion 95 Extension 33 Abduction 71 External Rotation at 0 degrees Abduction 53 Internal Rotation Behind Back (text) mid sacrum PT-OP-L Special Tests Start: 03/28/19 07:28 Freq: Status: Active Protocol: Document 05/22/19 11:24 [facility] (Rec: 05/22/19 11:31 [facility] [id number]) Special Tests Shoulder Special Tests Sulcus Test Results neg AC Joint Compression Test Results neg [place] Test Test Results positive L Speed's Biceps Test Results pain but less pain then with Luna testing Neer Impingement Test Results positive L Christianson Farhad Impingement Test Results positive L Empty Can Test Results positive L PT-OP-M Strength Start: 03/28/19 07:28 Freq: Status: Active Protocol: Document 05/22/19 11:24 [facility] (Rec: 05/22/19 11:31 [facility] [id number]) Cervical Spine Strength Cervical Spine Manual Muscle Testing Testing Position Sitting Flexion (C1-2) 4+ Good+ Extension 5 Normal Rotation Left 5 Normal Rotation Right 5 Normal Lateral Flexion Left (C3) 5 Normal Lateral Flexion Right (C3) 5 Normal Reason Not Measured Pain Shoulder Strength Shoulder Manual Muscle Testing Right External Rotation 3 Fair Internal Rotation 3+ Fair+ Comments pt unable to go through gravity for flex, abd, ext ROM so less than 3/5 Left Flexion 4+ Good+ Extension 4 Good Abduction (C5) 5 Normal External Rotation 4- Good- Internal Rotation 5 Normal Elbow/Forearm Strength Elbow and Forearm Manual Muscle Testing Left Flexion (C6) 4 Good Supination 3+ Fair+ Reason Not Measured Pain PT-OP-Q Treatments Start: 03/28/19 07:28 Freq: Status: Active Protocol: Document 06/28/19 08:12 [facility] (Rec: 06/28/19 09:01 [facility] [id number]) Therapeutic Exercises Prone Exercises ext Side left Reps/Minutes 15 Habd Side left Reps/Minutes 15 Sidelying Exercises ER Side left Reps/Minutes 30 Comments w/towel between elbow Sitting Exercises 1 Sitting Exercise Name pulleys flex, scaption, abd Side left Reps/Minutes 15 ea Standing Exercises 1 Standing Exercise Name Habd at side Side bilateral Equipment Used L1 Reps/Minutes 15 Manual Therapy Treatment Soft Tissue Mobilization pec Body Location L pec Mobilization Type Rolling,Strumming Intensity/Depth Moderate Body Position Supine 1 Body Location L UT, LS, scalenes, infraspinatus Mobilization Type Myofascial Release, Oscillations,Rolling,Strumming ,Sustained Pressure Intensity/Depth Moderate Body Position Supine Joint Mobilizations 1 Joint 1st rib Direction caudal FM L PT-OP-R Modalities Start: 03/28/19 07:28 Freq: Status: Active Protocol: Document 06/28/19 08:12 [facility] (Rec: 06/28/19 09:01 [facility] [id number]) Hot Pack/Cold Pack Treatment Cold Pack Location L Patient Position Hooklying Treatment Duration (minutes) 10 PT-OP-T Assessment and Plan Start: 03/28/19 07:28 Freq: Status: Active Protocol: Document 06/28/19 08:12 [facility] (Rec: 06/28/19 09:01 [facility] [id number]) Physical Therapy Assessment Goals shoulder strength Short Term Goal (STG) Pt will be indep with HEP. STG Duration 06/22/19 Care Home Goal (LTG) Pt will have equal UE strength B in order to allow pt to do all lifting activities at home and work. LTG Duration 07/22/19 shoulder ROM Short Term Goal (STG) Pt will improve flex and abd ROM to 120 deg. STG Duration 06/22/19 Care Home Goal (LTG) Pt will have WNL ROM of L shoulder in order to do reaching activities required by work. LTG Duration 07/22/19 NDI Care Home Goal (LTG) pt will decrease her NDI score to 6/50 05/18-cont limit likely d/t L shoulder impairments LTG Duration 07/19/19 strength Impairment impaired neck strength Short Term Goal (STG) pt will be compliant with HEP for neck and postural strengthening exercises STG Duration achieved progressing as needed Care Home Goal (LTG) Pt will increase neck strength to 5/5 in all directions 05/18-significnatly improved, no pain, only flex limited to 4+/5 LTG Duration 05/28/19 posture Care Home Goal (LTG) pt will demonstrate improved posture with minimal deviations for improved activity tolerance for work and daily activities 05/18-improving LTG Duration 06/17/19 pain Impairment neck pain Short Term Goal (STG) pt will decrease neck pain to 3/10 with daily activity 05/18-4/10 improving with less constant where as before 10/31 STG Duration 06/07/19 Care Home Goal (LTG) pt will be able to complete a full shift at work without aggravation of symptoms 05/18-symptoms no longer as bad after a shift LTG Duration 07/19/19 Assessment Summary Assessment Pt is improving with AAROM and is noting most pain in UT region. She had significant tightness today but it improves with STM. Pt reports some releif with treatment. Physical Therapy Plan Frequency and Duration Frequency of Treatment 1-2x/week Duration of Treatment 2 months Plan of Care Start Date 05/22/19 Plan of Care End Date 07/22/19 Next Visit Focus/Plan Next Note Type Treatment Note Next Visit Plan PNF, cont to work with pullys and try UBE
--- NOTE | 2019-07-04 10:36 | PT.OTN ---
Current Diagnoses Pain in left shoulder (07/04/19) Cervicalgia (07/04/19) Abnormal posture (07/04/19) Weakness (07/04/19) Physical Therapy Treatment Note PT-OP-A Visit Information Start: 03/28/19 07:28 Freq: Status: Active Protocol: Document 07/04/19 09:50 [facility] (Rec: 07/04/19 10:36 [facility] [id number]) Out-Patient Physical Therapy Visit Information Visit Information Visit Type Treatment Note Visit Start Time 09:48 Visit Stop Time 10:28 Total Visit Minutes 40 Visit Number 12 Number of DERMATOLOGICAL SURGEON Visits 0 PT-OP-B Current Condition Start: 03/28/19 07:28 Freq: Status: Active Protocol: Document 05/22/19 11:24 [facility] (Rec: 05/22/19 11:38 [facility] [id number]) Current Condition History of Current Condition Onset Date October Current Complaints L shoulder pain & neck pain History of Current Condition 05/22-L and shoulder pain started at the same time with gradual onset. Pt reports work aggrevates the pain the most. IE:Went ot see Dr. Sparks for her shoulder and he told her she has tendonitis in her rotator cuff of left shoulder. She works at [employer] and has not been able to lift anything above her head above her head. She has taken time off work (she has 3 weeks) and her shoulder got better through that rest period. Pt reports pain about 3 inches down from base of neck. She was seen for a concussion. At recent visit, took x-ray and found compression fracture in cevical spine but was unsure about how skilled nursing that compression was from. About 5 years ago, pt had a heavy box fall directly onto her head and she was seen for a concussion, which she thought may be where the compression fracture might have come from. She has history of sciatica. She stated that she woke up one morning in October and the pain in her neck was there. Neck pain seems to coincide with the L shoulder pain, but is less constant than the shoulder pain. Pt reports that the pain used to go down her arm about care home, but does not do that as much. Pt was told by doctor to follow up after PT. Treatment Goals Patient/Caregiver Goals decrease pain, be able to work without pain, be able to lift again. PT-OP-C Subjective Start: 03/28/19 07:28 Freq: Status: Active Protocol: Document 07/04/19 09:50 [facility] (Rec: 07/04/19 10:36 [facility] [id number]) OP-PT Subjective Patient Comments Patient Comments Pt reports she has been sick over the past few days. Notes she wasn't able to do the exercises as much d/t this and she feels it now. PT-OP-F Manual Assessment Start: 03/28/19 07:28 Freq: Status: Active Protocol: Document 05/22/19 11:24 [facility] (Rec: 05/22/19 18:56 [facility] [id number]) Manual Assessments Soft Tissue Assessment Soft Tissue Mobility Assessment tenderness to L pec, biceps, UT, LS PT-OP-J Posture/Palpation/Skin Start: 03/28/19 07:28 Freq: Status: Active Protocol: Document 03/28/19 13:00 MT (Rec: 03/28/19 13:47 MT [id number]) Posture Evaluation [facility] Postural Classification System [facility] Postural Classifications Posterior/Anterior Elbow Flexion Test 0 Comments Posture Comments Ant sheared pelvis; L shoulder higher than R, bilateral shoulders rounding forward in standing PT-OP-K Range of Motion Start: 03/28/19 07:28 Freq: Status: Active Protocol: Document 05/22/19 11:24 [facility] (Rec: 05/22/19 11:31 [facility] [id number]) Cervical Spine Range of Motion Cervical Spine Active Flexion 60 Extension 54 Rotation Left 64 Rotation Right 70 Lateral Flexion Left 43 Lateral Flexion Right 42 Comments pain w/ L rotation only Shoulder Goniometric Range of Motion Shoulder Left Passive Flexion 112 Abduction 82 External Rotation at 45 degrees 51 Abduction External Rotation at 0 degrees Abduction 57 Internal Rotation 33 Left Active Flexion 95 Extension 33 Abduction 71 External Rotation at 0 degrees Abduction 53 Internal Rotation Behind Back (text) mid sacrum PT-OP-L Special Tests Start: 03/28/19 07:28 Freq: Status: Active Protocol: Document 05/22/19 11:24 [facility] (Rec: 05/22/19 11:31 [facility] [id number]) Special Tests Shoulder Special Tests Sulcus Test Results neg AC Joint Compression Test Results neg [place] Test Test Results positive L Speed's Biceps Test Results pain but less pain then with Luna testing Neer Impingement Test Results positive L Christianson Farhad Impingement Test Results positive L Empty Can Test Results positive L PT-OP-M Strength Start: 03/28/19 07:28 Freq: Status: Active Protocol: Document 05/22/19 11:24 [facility] (Rec: 05/22/19 11:31 [facility] [id number]) Cervical Spine Strength Cervical Spine Manual Muscle Testing Testing Position Sitting Flexion (C1-2) 4+ Good+ Extension 5 Normal Rotation Left 5 Normal Rotation Right 5 Normal Lateral Flexion Left (C3) 5 Normal Lateral Flexion Right (C3) 5 Normal Reason Not Measured Pain Shoulder Strength Shoulder Manual Muscle Testing Right External Rotation 3 Fair Internal Rotation 3+ Fair+ Comments pt unable to go through gravity for flex, abd, ext ROM so less than 3/5 Left Flexion 4+ Good+ Extension 4 Good Abduction (C5) 5 Normal External Rotation 4- Good- Internal Rotation 5 Normal Elbow/Forearm Strength Elbow and Forearm Manual Muscle Testing Left Flexion (C6) 4 Good Supination 3+ Fair+ Reason Not Measured Pain PT-OP-Q Treatments Start: 03/28/19 07:28 Freq: Status: Active Protocol: Document 07/04/19 09:50 [facility] (Rec: 07/04/19 10:36 [facility] [id number]) Cardio Equipment Upper Body Ergometer (UBE) Duration (Minutes) 6 Seat Position 14 Height 5 Other fwd/back Therapeutic Exercises Prone Exercises ext Side left Equipment Used 1# Reps/Minutes 15 Habd Side left Reps/Minutes 15 Sidelying Exercises ER Side left Reps/Minutes 20 Comments w/towel between elbow Sitting Exercises 1 Sitting Exercise Name pulleys flex, scaption, abd Side left Reps/Minutes 15 ea Manual Therapy Treatment Soft Tissue Mobilization 1 Body Location L UT, LS, scalenes, infraspinatus Mobilization Type Myofascial Release, Oscillations,Rolling,Strumming ,Sustained Pressure Intensity/Depth Moderate Body Position Supine Joint Mobilizations 1 Joint GH Direction distraction, inf, post glides Neuro Re-Education Treatment Other Activities PNF Details post depression Comments 1. rhythmic initiation 2. sustained isometrics 3. COI PT-OP-R Modalities Start: 03/28/19 07:28 Freq: Status: Active Protocol: Document 06/28/19 08:12 [facility] (Rec: 06/28/19 09:01 [facility] [id number]) Hot Pack/Cold Pack Treatment Cold Pack Location L Patient Position Hooklying Treatment Duration (minutes) 10 PT-OP-T Assessment and Plan Start: 03/28/19 07:28 Freq: Status: Active Protocol: Document 07/04/19 09:50 [facility] (Rec: 07/04/19 10:36 [facility] [id number]) Physical Therapy Assessment Goals shoulder strength Short Term Goal (STG) Pt will be indep with HEP. STG Duration 06/22/19 Fdc Goal (LTG) Pt will have equal UE strength B in order to allow pt to do all lifting activities at home and work. LTG Duration 07/22/19 shoulder ROM Short Term Goal (STG) Pt will improve flex and abd ROM to 120 deg. STG Duration 06/22/19 Fdc Goal (LTG) Pt will have WNL ROM of L shoulder in order to do reaching activities required by work. LTG Duration 07/22/19 NDI Fdc Goal (LTG) pt will decrease her NDI score to 6/50 05/18-cont limit likely d/t L shoulder impairments LTG Duration 07/19/19 strength Impairment impaired neck strength Short Term Goal (STG) pt will be compliant with HEP for neck and postural strengthening exercises STG Duration achieved progressing as needed Environmental Programs Specialist Goal (LTG) Pt will increase neck strength to 5/5 in all directions 05/18-significnatly improved, no pain, only flex limited to 4+/5 LTG Duration 05/28/19 posture Environmental Programs Specialist Goal (LTG) pt will demonstrate improved posture with minimal deviations for improved activity tolerance for work and daily activities 05/18-improving LTG Duration 06/17/19 pain Impairment neck pain Short Term Goal (STG) pt will decrease neck pain to 3/10 with daily activity 05/18-4/10 improving with less constant where as before 10/31 STG Duration 06/07/19 Fdc Goal (LTG) pt will be able to complete a full shift at work without aggravation of symptoms 05/18-symptoms no longer as bad after a shift LTG Duration 07/19/19 Assessment Summary Assessment Pt cont to improve with AAROM with overhead activities. She cont to have tightness in UT/ LS region that improves with STM Physical Therapy Plan Frequency and Duration Frequency of Treatment 1-2x/week Duration of Treatment 2 months Plan of Care Start Date 05/22/19 Plan of Care End Date 07/22/19 Next Visit Focus/Plan Next Note Type Treatment Note Next Visit Plan cont to work on ROM & PNF
--- NOTE | 2019-07-12 10:41 | PT.OTN ---
Current Diagnoses Pain in left shoulder (07/12/19) Cervicalgia (07/12/19) Abnormal posture (07/12/19) Weakness (07/12/19) Physical Therapy Treatment Note PT-OP-A Visit Information Start: 03/28/19 07:28 Freq: Status: Active Protocol: Document 07/12/19 09:51 LR (Rec: 07/12/19 10:41 [facility] [id number]) Out-Patient Physical Therapy Visit Information Visit Information Visit Type Treatment Note Visit Start Time 09:48 Visit Stop Time 10:30 Total Visit Minutes 42 Visit Number 13 Number of GUM SCORING MACHINE OPERATOR Visits 0 PT-OP-B Current Condition Start: 03/28/19 07:28 Freq: Status: Active Protocol: Document 05/22/19 11:24 [facility] (Rec: 05/22/19 11:38 [facility] [id number]) Current Condition History of Current Condition Onset Date October Current Complaints L shoulder pain & neck pain History of Current Condition 05/22-L and shoulder pain started at the same time with gradual onset. Pt reports work aggrevates the pain the most. IE:Went ot see Dr. Spraks for her shoulder and he told her she has tendonitis in her rotator cuff of left shoulder. She works at [employer] and has not been able to lift anything above her head above her head. She has taken time off work (she has 3 weeks) and her shoulder got better through that rest period. Pt reports pain about 3 inches down from base of neck. She was seen for a concussion. At recent visit, took x-ray and found compression fracture in cevical spine but was unsure about how half-way that compression was from. About 5 years ago, pt had a heavy box fall directly onto her head and she was seen for a concussion, which she thought may be where the compression fracture might have come from. She has history of sciatica. She stated that she woke up one morning in October and the pain in her neck was there. Neck pain seems to coincide with the L shoulder pain, but is less constant than the shoulder pain. Pt reports that the pain used to go down her arm about long-term, but does not do that as much. Pt was told by doctor to follow up after PT. Treatment Goals Patient/Caregiver Goals decrease pain, be able to work without pain, be able to lift again. PT-OP-C Subjective Start: 03/28/19 07:28 Freq: Status: Active Protocol: Document 07/12/19 09:51 [facility] (Rec: 07/12/19 10:41 [facility] [id number]) OP-PT Subjective Patient Comments Patient Comments Pt reprots she feels like she has been doing a lot better since last time and is doing okay despite just getting off work Patient Reported Progress Improving PT-OP-F Manual Assessment Start: 03/28/19 07:28 Freq: Status: Active Protocol: Document 05/22/19 11:24 [facility] (Rec: 05/22/19 18:56 [facility] [id number]) Manual Assessments Soft Tissue Assessment Soft Tissue Mobility Assessment tenderness to L pec, biceps, UT, LS PT-OP-J Posture/Palpation/Skin Start: 03/28/19 07:28 Freq: Status: Active Protocol: Document 03/28/19 13:00 MT (Rec: 03/28/19 13:47 MT [id number]) Posture Evaluation [facility] Postural Classification System [facility] Postural Classifications Posterior/Anterior Elbow Flexion Test 0 Comments Posture Comments Ant sheared pelvis; L shoulder higher than R, bilateral shoulders rounding forward in standing PT-OP-K Range of Motion Start: 03/28/19 07:28 Freq: Status: Active Protocol: Document 05/22/19 11:24 [facility] (Rec: 05/22/19 11:31 [facility] [id number]) Cervical Spine Range of Motion Cervical Spine Active Flexion 60 Extension 54 Rotation Left 64 Rotation Right 70 Lateral Flexion Left 43 Lateral Flexion Right 42 Comments pain w/ L rotation only Shoulder Goniometric Range of Motion Shoulder Left Passive Flexion 112 Abduction 82 External Rotation at 45 degrees 51 Abduction External Rotation at 0 degrees Abduction 57 Internal Rotation 33 Left Active Flexion 95 Extension 33 Abduction 71 External Rotation at 0 degrees Abduction 53 Internal Rotation Behind Back (text) mid sacrum PT-OP-L Special Tests Start: 03/28/19 07:28 Freq: Status: Active Protocol: Document 05/22/19 11:24 [facility] (Rec: 05/22/19 11:31 [facility] [id number]) Special Tests Shoulder Special Tests Sulcus Test Results neg AC Joint Compression Test Results neg [place] Test Test Results positive L Speed's Biceps Test Results pain but less pain then with Luna testing Neer Impingement Test Results positive L Christianson Farhad Impingement Test Results positive L Empty Can Test Results positive L PT-OP-M Strength Start: 03/28/19 07:28 Freq: Status: Active Protocol: Document 05/22/19 11:24 [facility] (Rec: 05/22/19 11:31 [facility] [id number]) Cervical Spine Strength Cervical Spine Manual Muscle Testing Testing Position Sitting Flexion (C1-2) 4+ Good+ Extension 5 Normal Rotation Left 5 Normal Rotation Right 5 Normal Lateral Flexion Left (C3) 5 Normal Lateral Flexion Right (C3) 5 Normal Reason Not Measured Pain Shoulder Strength Shoulder Manual Muscle Testing Right External Rotation 3 Fair Internal Rotation 3+ Fair+ Comments pt unable to go through gravity for flex, abd, ext ROM so less than 3/5 Left Flexion 4+ Good+ Extension 4 Good Abduction (C5) 5 Normal External Rotation 4- Good- Internal Rotation 5 Normal Elbow/Forearm Strength Elbow and Forearm Manual Muscle Testing Left Flexion (C6) 4 Good Supination 3+ Fair+ Reason Not Measured Pain PT-OP-Q Treatments Start: 03/28/19 07:28 Freq: Status: Active Protocol: Document 07/12/19 09:51 [facility] (Rec: 07/12/19 10:41 [facility] [id number]) Cardio Equipment Upper Body Ergometer (UBE) Duration (Minutes) 6 Seat Position 14 Height 6 Other fwd/back Therapeutic Exercises Prone Exercises ext Side left Equipment Used 2# Reps/Minutes 15 Habd Side left Equipment Used 1# Reps/Minutes 15 Sidelying Exercises abd Side left Equipment Used 1# Reps/Minutes 20 ER Side left Equipment Used 1# Reps/Minutes 30 Comments w/towel between elbow Sitting Exercises 1 Sitting Exercise Name pulleys flex, scaption, abd & IR Side left Reps/Minutes 20 ea Manual Therapy Treatment Soft Tissue Mobilization pec Body Location L pec Mobilization Type Rolling,Strumming Intensity/Depth Moderate Body Position Supine 1 Body Location L UT, LS,teres, infraspinatus Mobilization Type Myofascial Release, Oscillations,Rolling,Strumming ,Sustained Pressure Intensity/Depth Moderate Body Position Supine PT-OP-R Modalities Start: 03/28/19 07:28 Freq: Status: Active Protocol: Document 06/28/19 08:12 [facility] (Rec: 06/28/19 09:01 [facility] [id number]) Hot Pack/Cold Pack Treatment Cold Pack Location L Patient Position Hooklying Treatment Duration (minutes) 10 PT-OP-T Assessment and Plan Start: 03/28/19 07:28 Freq: Status: Active Protocol: Document 07/12/19 09:51 [facility] (Rec: 07/12/19 10:41 [facility] [id number]) Physical Therapy Assessment Goals shoulder strength Short Term Goal (STG) Pt will be indep with HEP. STG Duration 06/22/19 Sales Support Consultant Goal (LTG) Pt will have equal UE strength B in order to allow pt to do all lifting activities at home and work. LTG Duration 07/22/19 shoulder ROM Short Term Goal (STG) Pt will improve flex and abd ROM to 120 deg. STG Duration 06/22/19 Sales Support Consultant Goal (LTG) Pt will have WNL ROM of L shoulder in order to do reaching activities required by work. LTG Duration 07/22/19 NDI Sales Support Consultant Goal (LTG) pt will decrease her NDI score to 6/50 05/18-cont limit likely d/t L shoulder impairments LTG Duration 07/19/19 strength Impairment impaired neck strength Short Term Goal (STG) pt will be compliant with HEP for neck and postural strengthening exercises STG Duration achieved progressing as needed Shelter Goal (LTG) Pt will increase neck strength to 5/5 in all directions 05/18-significnatly improved, no pain, only flex limited to 4+/5 LTG Duration 05/28/19 posture Shelter Goal (LTG) pt will demonstrate improved posture with minimal deviations for improved activity tolerance for work and daily activities 05/18-improving LTG Duration 06/17/19 pain Impairment neck pain Short Term Goal (STG) pt will decrease neck pain to 3/10 with daily activity 05/18-4/10 improving with less constant where as before 10/31 STG Duration 06/07/19 Shelter Goal (LTG) pt will be able to complete a full shift at work without aggravation of symptoms 05/18-symptoms no longer as bad after a shift LTG Duration 07/19/19 Assessment Summary Assessment Pt is improving significantly with ability to do AAROM & PROM with less pain. She improved with form with exercises and was gicen a handout. Physical Therapy Plan Frequency and Duration Frequency of Treatment 1-2x/week Duration of Treatment 2 months Plan of Care Start Date 05/22/19 Plan of Care End Date 07/22/19 Next Visit Focus/Plan Next Note Type Progress Note Next Visit Plan cont to work on ROM & PNF
--- NOTE | 2019-07-19 10:31 | PT.OTN ---
Current Diagnoses Pain in left shoulder (07/19/19) Cervicalgia (07/19/19) Abnormal posture (07/19/19) Weakness (07/19/19) Physical Therapy Treatment Note PT-OP-A Visit Information Start: 03/28/19 07:28 Freq: Status: Active Protocol: Document 07/19/19 09:59 LR (Rec: 07/19/19 10:30 [facility] [id number]) Out-Patient Physical Therapy Visit Information Visit Information Visit Type Progress Note Visit Start Time 09:52 Visit Stop Time 10:30 Total Visit Minutes 38 Visit Number 14 Number of LUGGER Visits 0 PT-OP-B Current Condition Start: 03/28/19 07:28 Freq: Status: Active Protocol: Document 05/22/19 11:24 LR (Rec: 05/22/19 11:38 [facility] [id number]) Current Condition History of Current Condition Onset Date October Current Complaints L shoulder pain & neck pain History of Current Condition 05/22-L and shoulder pain started at the same time with gradual onset. Pt reports work aggrevates the pain the most. IE:Went ot see Dr. Sparks for her shoulder and he told her she has tendonitis in her rotator cuff of left shoulder. She works at [employer] and has not been able to lift anything above her head above her head. She has taken time off work (she has 3 weeks) and her shoulder got better through that rest period. Pt reports pain about 3 inches down from base of neck. She was seen for a concussion. At recent visit, took x-ray and found compression fracture in cevical spine but was unsure about how nursing home that compression was from. About 5 years ago, pt had a heavy box fall directly onto her head and she was seen for a concussion, which she thought may be where the compression fracture might have come from. She has history of sciatica. She stated that she woke up one morning in October and the pain in her neck was there. Neck pain seems to coincide with the L shoulder pain, but is less constant than the shoulder pain. Pt reports that the pain used to go down her arm about mcc, but does not do that as much. Pt was told by doctor to follow up after PT. Treatment Goals Patient/Caregiver Goals decrease pain, be able to work without pain, be able to lift again. PT-OP-C Subjective Start: 03/28/19 07:28 Freq: Status: Active Protocol: Document 07/19/19 09:59 [facility] (Rec: 07/19/19 10:30 [facility] [id number]) OP-PT Subjective Patient Comments Patient Comments Pt reprots hip hurting so bad that she is unsure if how her shoulder and neck is doing d/t how much pain in hip PT-OP-F Manual Assessment Start: 03/28/19 07:28 Freq: Status: Active Protocol: Document 05/22/19 11:24 [facility] (Rec: 05/22/19 18:56 [facility] [id number]) Manual Assessments Soft Tissue Assessment Soft Tissue Mobility Assessment tenderness to L pec, biceps, UT, LS PT-OP-J Posture/Palpation/Skin Start: 03/28/19 07:28 Freq: Status: Active Protocol: Document 03/28/19 13:00 MT (Rec: 03/28/19 13:47 MT [id number]) Posture Evaluation [facility] Postural Classification System [facility] Postural Classifications Posterior/Anterior Elbow Flexion Test 0 Comments Posture Comments Ant sheared pelvis; L shoulder higher than R, bilateral shoulders rounding forward in standing PT-OP-K Range of Motion Start: 03/28/19 07:28 Freq: Status: Active Protocol: Document 07/19/19 09:59 [facility] (Rec: 07/19/19 10:30 [facility] [id number]) Cervical Spine Range of Motion Cervical Spine Active Flexion 50 Extension 35 Rotation Left 48 Rotation Right 40 Lateral Flexion Left 45 Lateral Flexion Right 26 Comments slight pain w/SB & rotation Shoulder Goniometric Range of Motion Shoulder Left Passive Flexion 160 Abduction 90 External Rotation at 0 degrees Abduction 73 Internal Rotation 60 Right Active Shoulder ROM WFL Yes Testing Position Standing Flexion 154 Abduction 130 External Rotation at 0 degrees Abduction 62 Internal Rotation Behind Back (text) T7 Left Active Testing Position Standing Flexion 101 Extension 44 Abduction 79 External Rotation at 0 degrees Abduction 60 Internal Rotation Behind Back (text) L2 PT-OP-L Special Tests Start: 03/28/19 07:28 Freq: Status: Active Protocol: Document 05/22/19 11:24 [facility] (Rec: 05/22/19 11:31 [facility] [id number]) Special Tests Shoulder Special Tests Sulcus Test Results neg AC Joint Compression Test Results neg [place] Test Test Results positive L Speed's Biceps Test Results pain but less pain then with Luna testing Neer Impingement Test Results positive L Christianson Farhad Impingement Test Results positive L Empty Can Test Results positive L PT-OP-M Strength Start: 03/28/19 07:28 Freq: Status: Active Protocol: Document 07/19/19 09:59 [facility] (Rec: 07/19/19 10:30 [facility] [id number]) Shoulder Strength Shoulder Manual Muscle Testing Right Flexion 4 Good Extension 4+ Good+ Abduction (C5) 4 Good External Rotation 4- Good- Internal Rotation 4- Good- Comments pain in R shoulder with ER Left Flexion 4- Good- Extension 4 Good Abduction (C5) 3+ Fair+ External Rotation 4 Good Internal Rotation 4 Good Comments strengthen test documented incorrectly last w/L and R switched PT-OP-Q Treatments Start: 03/28/19 07:28 Freq: Status: Active Protocol: Document 07/19/19 09:59 [facility] (Rec: 07/19/19 10:30 [facility] [id number]) Cardio Equipment Upper Body Ergometer (UBE) Duration (Minutes) 6 Seat Position 14 Height 6 Other fwd/back Therapeutic Exercises Supine Exercises 1 Supine Exercise Name flex and scaption AAROM Side left Equipment Used cane Reps/Minutes 15 Prone Exercises scaption Prone Exercise Name comfortable range Side left Reps/Minutes 15 Habd Side left Equipment Used 1# Reps/Minutes 15 Manual Therapy Treatment Soft Tissue Mobilization 1 Body Location L UT, LS Mobilization Type Myofascial Release, Oscillations,Rolling,Strumming ,Sustained Pressure Intensity/Depth Moderate Body Position Supine PT-OP-R Modalities Start: 03/28/19 07:28 Freq: Status: Active Protocol: Document 06/28/19 08:12 [facility] (Rec: 06/28/19 09:01 [facility] [id number]) Hot Pack/Cold Pack Treatment Cold Pack Location L Patient Position Hooklying Treatment Duration (minutes) 10 PT-OP-T Assessment and Plan Start: 03/28/19 07:28 Freq: Status: Active Protocol: Document 07/19/19 09:59 [facility] (Rec: 07/19/19 10:30 [facility] [id number]) Physical Therapy Assessment Goals shoulder strength Short Term Goal (STG) Pt will be indep with HEP. STG Duration achieved Fdc Goal (LTG) Pt will have equal UE strength B in order to allow pt to do all lifting activities at home and work. 07/19-signifciantly improved LTG Duration 09/17/19 shoulder ROM Short Term Goal (STG) Pt will improve flex and abd ROM to 120 deg. 07/19-improved actively and passively STG Duration 08/11/19 Senior Front End Engineer Goal (LTG) Pt will have WNL ROM of L shoulder in order to do reaching activities required by work. LTG Duration 09/17/19 NDI Fdc Goal (LTG) pt will decrease her NDI score to 6/50 05/18-cont limit likely d/t L shoulder impairments LTG Duration 09/17/19 strength Impairment impaired neck strength Short Term Goal (STG) pt will be compliant with HEP for neck and postural strengthening exercises STG Duration achieved progressing as needed Senior Front End Engineer Goal (LTG) Pt will increase neck strength to 5/5 in all directions 05/18-significnatly improved, no pain, only flex limited to 4+/5 LTG Duration 05/28/19 posture Fdc Goal (LTG) pt will demonstrate improved posture with minimal deviations for improved activity tolerance for work and daily activities 05/18-improving 07/19-improved but still fwd shoulder LTG Duration 09/16 pain Impairment neck pain Short Term Goal (STG) pt will decrease neck pain to 3/10 with daily activity 05/18-08/31 improving with less constant where as before 10/31 STG Duration 08/16 Senior Front End Engineer Goal (LTG) pt will be able to complete a full shift at work without aggravation of symptoms 05/18-symptoms no longer as bad after a shift 07/19-working full shift but not as bad after LTG Duration 09/17/19 Assessment Summary Assessment Pt has significantly improved in PROM and strength, but is stillv cristiana limited in AROM especiallyw ith overhead mobility. SHe has mad eimprovements but not as large of gains as she has passively . Able to tolerate addition of more overhead AAROM today with min inc pain Physical Therapy Plan Frequency and Duration Frequency of Treatment 1-2x/week Duration of Treatment 2 months Plan of Care Start Date 07/19/19 Plan of Care End Date 09/17/19 Therapeutic Interventions Therapeutic Interventions Aquatic Therapy,Coordination Training,Home Exercise Program ,Joint Mobilizations,Manual Therapy,Neuromuscular Re- education,Patient/Caregiver Education,Self-Care/Home Management,Soft Tissue Mobilization,Taping, Therapeutic Activities, Therapeutic Exercises Modalities Cold Pack/Ice Massage,Electric Stimulation,Hot Packs, Infrared Therapy,Iontophoresis ,Traction- Mechanical, Ultrasound Next Visit Focus/Plan Next Note Type Treatment Note Next Visit Plan cont to work on ROM & PNF
--- NOTE | 2019-07-19 10:31 | PT.OPPOC ---
Physical, Occupational & Speech Therapy At [facility] Current Diagnoses Pain in left shoulder (07/19/19) Cervicalgia (07/19/19) Abnormal posture (07/19/19) Weakness (07/19/19) Visit Care Team Role Provider Type Kathryn Brandon MD Attending Provider Physician Primary Care Provider Specialty: [facility] Practice Address: [address] [place] [address], [place], [address] Email: [email or web address] Plan Of Care PT-OP-T Assessment and Plan Start: 03/28/19 07:28 Freq: Status: Active Protocol: Document 07/19/19 09:59 [facility] (Rec: 07/19/19 10:30 [facility] [id number]) Physical Therapy Assessment Goals shoulder strength Short Term Goal (STG) Pt will be indep with HEP. STG Duration achieved Embryology Professor Goal (LTG) Pt will have equal UE strength B in order to allow pt to do all lifting activities at home and work. 07/19-signifciantly improved LTG Duration 09/17/19 shoulder ROM Short Term Goal (STG) Pt will improve flex and abd ROM to 120 deg. 07/19-improved actively and passively STG Duration 08/11/19 Embryology Professor Goal (LTG) Pt will have WNL ROM of L shoulder in order to do reaching activities required by work. LTG Duration 09/17/19 NDI Penitentiary Goal (LTG) pt will decrease her NDI score to 6/50 05/18-cont limit likely d/t L shoulder impairments LTG Duration 09/17/19 strength Impairment impaired neck strength Short Term Goal (STG) pt will be compliant with HEP for neck and postural strengthening exercises STG Duration achieved progressing as needed Embryology Professor Goal (LTG) Pt will increase neck strength to 5/5 in all directions 05/18-significnatly improved, no pain, only flex limited to 4+/5 LTG Duration 05/28/19 posture Penitentiary Goal (LTG) pt will demonstrate improved posture with minimal deviations for improved activity tolerance for work and daily activities 05/18-improving 07/19-improved but still fwd shoulder LTG Duration 09/16 pain Impairment neck pain Short Term Goal (STG) pt will decrease neck pain to 3/10 with daily activity 05/18-08/31 improving with less constant where as before 10/31 STG Duration 08/16 Penitentiary Goal (LTG) pt will be able to complete a full shift at work without aggravation of symptoms 05/18-symptoms no longer as bad after a shift 07/19-working full shift but not as bad after LTG Duration 09/17/19 Assessment Summary Assessment Pt has significantly improved in PROM and strength, but is stillv cristiana limited in AROM especiallyw ith overhead mobility. SHe has mad eimprovements but not as large of gains as she has passively . Able to tolerate addition of more overhead AAROM today with min inc pain Physical Therapy Plan Frequency and Duration Frequency of Treatment 1-2x/week Duration of Treatment 2 months Plan of Care Start Date 07/19/19 Plan of Care End Date 09/17/19 Therapeutic Interventions Therapeutic Interventions Aquatic Therapy,Coordination Training,Home Exercise Program ,Joint Mobilizations,Manual Therapy,Neuromuscular Re- education,Patient/Caregiver Education,Self-Care/Home Management,Soft Tissue Mobilization,Taping, Therapeutic Activities, Therapeutic Exercises Modalities Cold Pack/Ice Massage,Electric Stimulation,Hot Packs, Infrared Therapy,Iontophoresis ,Traction- Mechanical, Ultrasound Next Visit Focus/Plan Next Note Type Treatment Note Next Visit Plan cont to work on ROM & PNF Plan of Care Dates Plan of Care Start Date 07/19/19 Plan of Care End Date 09/17/19 Electronically Signed by: Kathryn Keita, PT 07/19/19 1031 Please Sign and Return: I have reviewed this Plan of Care and certify that the skilled therapy services above are required to meet the patient?s needs. Physician Signature Date Printed Name and Credentials Clinical Instructor Signature Printed Name and Credentials
--- NOTE | 2019-09-19 13:22 | PT-OP ANOTE ---
Pt called re: starting to schedule appointments again and informed will be following CDC guidelines with dec therapists present in clinic, masks worn, cleaning and hand washing. Educated that they are not required to attend and it this pt choice re: attending. Pt left message re: this and will be called to schedule later with options given.
--- NOTE | 2019-11-16 13:42 | PT.OPDS ---
Current Diagnoses Pain in left shoulder (07/19/19) Cervicalgia (07/19/19) Abnormal posture (07/19/19) Weakness (07/19/19) Visit Care Team Role Provider Type Kathryn Brandon MD Attending Provider Physician Primary Care Provider Specialty: Family Practice Address: [address] [place] [address], [id number] Email: [email or web address] Visit Number Visit Number 14 Discharge Summary PT-OP-B Current Condition Start: 03/28/19 07:28 Freq: Status: Active Protocol: Document 05/22/19 11:24 [facility] (Rec: 05/22/19 11:38 [facility] [id number]) Current Condition History of Current Condition Onset Date October Current Complaints L shoulder pain & neck pain History of Current Condition 05/22-L and shoulder pain started at the same time with gradual onset. Pt reports work aggrevates the pain the most. IE:Went ot see Dr. Sparks for her shoulder and he told her she has tendonitis in her rotator cuff of left shoulder. She works at [employer] and has not been able to lift anything above her head above her head. She has taken time off work (she has 3 weeks) and her shoulder got better through that rest period. Pt reports pain about 3 inches down from base of neck. She was seen for a concussion. 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 About 5 years ago, pt had a heavy box fall directly onto her head and she was seen for a concussion, which she thought may be where the compression fracture might have come from. She has history of sciatica. She stated that she woke up one morning in October and the pain in her neck was there. Neck pain seems to coincide with the L shoulder pain, but is less constant than the shoulder pain. Pt reports that the pain used to go down her arm about long-term, but does not do that as much. Pt was told by doctor to follow up after PT. Treatment Goals Patient/Caregiver Goals decrease pain, be able to work without pain, be able to lift again. PT-OP-C Subjective Start: 03/28/19 07:28 Freq: Status: Active Protocol: Document 07/19/19 09:59 [facility] (Rec: 07/19/19 10:30 [facility] [id number]) OP-PT Subjective Patient Comments Patient Comments Pt reprots hip hurting so bad that she is unsure if how her shoulder and neck is doing d/t how much pain in hip PT-OP-F Manual Assessment Start: 03/28/19 07:28 Freq: Status: Active Protocol: Document 05/22/19 11:24 [facility] (Rec: 05/22/19 18:56 [facility] [id number]) Manual Assessments Soft Tissue Assessment Soft Tissue Mobility Assessment tenderness to L pec, biceps, UT, LS PT-OP-J Posture/Palpation/Skin Start: 03/28/19 07:28 Freq: Status: Active Protocol: Document 03/28/19 13:00 [facility] (Rec: 03/28/19 13:47 [facility] [id number]) Posture Evaluation [facility] Postural Classification System Delia Postural Classifications Posterior/Anterior Elbow Flexion Test 0 Comments Posture Comments Ant sheared pelvis; L shoulder higher than R, bilateral shoulders rounding forward in standing PT-OP-K Range of Motion Start: 03/28/19 07:28 Freq: Status: Active Protocol: Document 07/19/19 09:59 [facility] (Rec: 07/19/19 10:30 [facility] [id number]) Cervical Spine Range of Motion Cervical Spine Active Flexion 50 Extension 35 Rotation Left 48 Rotation Right 40 Lateral Flexion Left 45 Lateral Flexion Right 26 Comments slight pain w/SB & rotation Shoulder Goniometric Range of Motion Shoulder Left Passive Flexion 160 Abduction 90 External Rotation at 0 degrees Abduction 73 Internal Rotation 60 Right Active Shoulder ROM WFL Yes Testing Position Standing Flexion 154 Abduction 130 External Rotation at 0 degrees Abduction 62 Internal Rotation Behind Back (text) T7 Left Active Testing Position Standing Flexion 101 Extension 44 Abduction 79 External Rotation at 0 degrees Abduction 60 Internal Rotation Behind Back (text) L2 PT-OP-L Special Tests Start: 03/28/19 07:28 Freq: Status: Active Protocol: Document 05/22/19 11:24 [facility] (Rec: 05/22/19 11:31 [facility] [id number]) Special Tests Shoulder Special Tests Sulcus Test Results neg AC Joint Compression Test Results neg [place] Test Test Results positive L Speed's Biceps Test Results pain but less pain then with Luna testing Neer Impingement Test Results positive L Christianson Farhad Impingement Test Results positive L Empty Can Test Results positive L PT-OP-M Strength Start: 03/28/19 07:28 Freq: Status: Active Protocol: Document 07/19/19 09:59 [facility] (Rec: 07/19/19 10:30 [facility] [id number]) Shoulder Strength Shoulder Manual Muscle Testing Right Flexion 4 Good Extension 4+ Good+ Abduction (C5) 4 Good External Rotation 4- Good- Internal Rotation 4- Good- Comments pain in R shoulder with ER Left Flexion 4- Good- Extension 4 Good Abduction (C5) 3+ Fair+ External Rotation 4 Good Internal Rotation 4 Good Comments strengthen test documented incorrectly last w/L and R switched PT-OP-T Assessment and Plan Start: 03/28/19 07:28 Freq: Status: Active Protocol: Document 11/16/19 13:41 [facility] (Rec: 11/16/19 13:42 [facility] [id number]) Physical Therapy Plan Discharge Physical Therapy Discharge Reasons Patient Request Discharge Comments Pt was called re: resuming PT after reopening of clinic after COVId and stated she did not want to continue PT. DC at this time. She ahd made progress with neck paina nd ROM but was still limited with shoulder ROM and strength
== END 2019-11-28 09:01 ==
LOC: PHYS 09:45
PROVIDERS: PCP Family Medicine; Visit Provider Family Medicine
DX: M54.2 Cervicalgia (principal); R29.3 Abnormal posture; R53.1 Weakness; M25.512 Pain in left shoulder
CPT/HCPCS: 97110; 97112; 97140; 97161; 97164; 97530

== ENCOUNTER → 2019-12-12 09:01 | Outpatient (CLI) | payer OTHER, SELFPAY ==
[2019-12-12 10:42] LABS: Alanine Aminotransferase 15 IU/L (<35); Albumin 4.1 g/dL (3.5-5.0); Albumin Globulin Ratio 1.5 (1.0-2.8); Alkaline Phosphatase 113 U/L (38-126); Aspartate Aminotransferase 21 IU/L (14-36); BUN Creatinine Ratio 38.2 (6-22); Bilirubin Total 0.5 mg/dL (0.2-1.3); Blood Urea Nitrogen 21 mg/dL (7-17); Calcium 9.6 mg/dL (8.4-10.2); Carbon Dioxide 31 mmol/L (22-32); Chloride 102 mmol/L (98-107); Cholesterol 178 mg/dL (140-199); Estimated Glomerular Filt Rate > 60.0 mL/min (>60); Globulin 2.7 g/dL (1.7-4.1); Glucose 89 mg/dL (80-110); HDL Cholesterol 51 mg/dL (40-60); HEMOLYSIS < 15 (0-50); LDL Cholesterol Calculated 111 mg/dL (<100); Potassium 4.8 mmol/L (3.4-5.1); Sodium 138 mmol/L (137-145); Total Protein 6.8 g/dL (6.3-8.2); Triglycerides 80 mg/dL (35-150)
[2019-12-12 12:25] LABS: Creatinine Urine Random 55.9 mg/dL
[2019-12-12 12:28] LABS: Microalbumi Creatinin Ratio Ur 164.5 ug/mg CR (<30); Microalbumin Urine Random 9.2 mg/dL (0-1.6)
== END ==
PROVIDERS: PCP Family Medicine; Referring Provider Family Medicine; Visit Provider Family Medicine
DX: I10 Essential (primary) hypertension (principal)
CPT/HCPCS: 36415; 80053; 80061; 82043; 82570

== ENCOUNTER → 2020-02-28 08:18 | Outpatient (CLI) | payer MEDICARE, SELFPAY ==
--- NOTE | 2020-02-28 08:21 | DI.MG.S_ITS ---
BILATERAL DIGITAL SCREENING MAMMOGRAM 3D/2D WITH CAD: 02/28/2020 CLINICAL: Routine screening. Family history of breast cancer. Comparison is made to exams dated: 08/05/2017 mammogram - [facility], 06/24/2016 mammogram, and 06/21/2015 mammogram - [facility]. The tissue of both breasts is predominantly fatty. Current study was also evaluated with a Computer Aided Detection (CAD) system. No significant masses, calcifications, or other findings are seen in either breast. There has been no significant interval change. IMPRESSION: NEGATIVE There is no mammographic evidence of malignancy. A 1 year screening mammogram is recommended. This exam was interpreted at Station ID: [id number]. NOTE: For mammograms, a report in lay terms will be sent to the patient. Approximately 15% of breast malignancies will not be visualized mammographically. In the management of a palpable breast mass, a negative mammogram must not discourage biopsy of a clinically suspicious lesion. Electronically Signed By: Nghia milner/juan:02/29/2020 08:19:31 letter sent: Normal Exam ACR BI-RADS Category 1: Negative 3341F
== END ==
PROVIDERS: PCP Family Medicine; Referring Provider Family Medicine; Visit Provider Family Medicine
DX: Z12.31 Encounter for screening mammogram for malignant neoplasm of breast (principal); Z80.3 Family history of malignant neoplasm of breast
CPT/HCPCS: 77063; 77067

== ENCOUNTER → 2020-12-05 07:44 | Outpatient (CLI) | payer MEDICARE, SELFPAY ==
[2020-12-05 09:22] LABS: Alanine Aminotransferase 13 IU/L (<35); Albumin 4.1 g/dL (3.5-5.0); Albumin Globulin Ratio 1.5 (1.0-2.8); Alkaline Phosphatase 99 U/L (38-126); Aspartate Aminotransferase 22 IU/L (14-36); BUN Creatinine Ratio 29.5 (6-22); Bilirubin Total 0.7 mg/dL (0.2-1.3); Blood Urea Nitrogen 18 mg/dL (7-17); Calcium 9.7 mg/dL (8.4-10.2); Carbon Dioxide 28 mmol/L (22-32); Chloride 104 mmol/L (98-107); Cholesterol 211 mg/dL (140-199); Estimated Glomerular Filt Rate > 60.0 mL/min (>60); Globulin 2.8 g/dL (1.7-4.1); Glucose 106 mg/dL (80-110); HDL Cholesterol 66 mg/dL (40-60); HEMOLYSIS < 15 (0-50); LDL Cholesterol Calculated 127 mg/dL (<100); Potassium 4.6 mmol/L (3.4-5.1); Sodium 139 mmol/L (137-145); Total Protein 6.9 g/dL (6.3-8.2); Triglycerides 89 mg/dL (35-150)
[2020-12-05 09:44] LABS: Creatinine Urine Random 63.1 mg/dL
[2020-12-05 09:52] LABS: Microalbumi Creatinin Ratio Ur 109.3 ug/mg CR (<30); Microalbumin Urine Random 6.9 mg/dL (0-1.6)
== END ==
PROVIDERS: PCP Family Medicine; Referring Provider Family Medicine; Visit Provider Family Medicine
DX: I10 Essential (primary) hypertension (principal)
CPT/HCPCS: 36415; 80053; 80061; 82043; 82570

== ENCOUNTER → 2021-06-11 10:15 | Outpatient (CLI) | payer MEDICARE, SELFPAY ==
[2021-06-11 12:02] LABS: COVID19 -Nasal RAPID Negative (Negative)
== END ==
PROVIDERS: PCP Family Medicine; Referring Provider Surgery; Visit Provider Surgery
DX: Z01.812 Encounter for preprocedural laboratory examination (principal); Z20.822 Contact with and (suspected) exposure to COVID-19
CPT/HCPCS: 87635; C9803

== ENCOUNTER 2021-06-12 08:04 | Day surgery (SDC) | payer MEDICARE, OTHER, SELFPAY ==
--- NOTE | 2021-06-12 | PATH_ITS ---
[facility] Accession Number: [id number] . 01 Material submitted: . colon - ASCENDING COLON POLYP . 02 Diagnosis: Ascending Colon Polyp: Tubular adenoma. MRV 06/16/2021 1127 Local . 02 Electronically signed: . Christine Pedraza MD, Pathologist NPI- [id number] . 01 Gross description: . ASCENDING COLON POLYP: Received in formalin is 1 fragment(s) of alberto, soft tissue measuring 0.3 x 0.2 x 0.2 cm submitted entirely in 1 cassette(s) /TRC 06/13/2021 1254 Local . 02 Pathologist provided ICD-10: K63.5 . 02 CPT . 692112 Performed at: 01 [facility] [address] [id number] MD Wilver Leyva MD Phone: [phone] Performed at: 02 [facility] [address] [place], [place] [id number] MD Akiko De La Cruz MD Phone: [phone]
[2021-06-12] MEDS: LACTATED RINGERS 1,000 ML 84 ML IV (08:18)
[2021-06-12 08:26] VITALS: BP 155/92; PULSE 116; RESP 18; TEMP 36.1; O2SAT 95; BMI 38.9
--- NOTE | 2021-06-12 10:39 | PM.HP.1 ---
History of Present Illness History of Present Illness Date Patient Seen: 06/12/21 Time Patient Seen: 10:39 Chief complaint: COLONOSCOPY Narrative: Etta is a 66-year-old woman who had a colonoscopy at age 50 that was polyp free, under the colonoscopy at age 60 that had polyps. She is now here for her follow-up colonoscopy. She has no other symptoms. Her father of colon cancer at age 80.. Patient History Medical History (Updated 06/12/21 @ 10:41 by Javier Nelson MD) Chicken pox (1962) CTS (carpal tunnel syndrome) (2007) Early onset macular degeneration (2009) Essential hypertension Infertility (1980) Irregular periods/menstrual cycles (1974) Measles (1962) Osteoarthritis (2010) Pneumonia (2014) Retinal detachment (2009) Rubella (1962) Surgical History Anesthesia History of carpal tunnel repair (09/2009) Status post delivery (11/05/84) Family & Social History Family History Brother Age: 60 Hypertension Father Cancer Hypertension High cholesterol Mental health problem Colon cancer Dementia Diabetes mellitus Mother Age: 88 Hypertension High cholesterol Sister Age: 63 Breast cancer Grandfather Lung cancer Smoker Grandmother No problems noted. Social History: household members none other ticket clerk at [employer] Tobacco & Substance use: Smoking Status Former smoker alcohol intake current alcohol intake frequency holiday/special occasion Substance Use Type does not use Meds Home Medications and Allergies Home Medications Medication Instructions Recorded Confirmed Type vit C 250 mg-vit E 90 mg-zinc 40 1 ea PO #0 08/02/17 12/12/20 History mg-copper 1 [id number] capsule (PreserVision AREDS-2) lisinopril 10 mg tablet See Rx Instructions .ROUTE 12/12/20 12/12/20 Rx .COMPLEX #90 tab sodium,potassium,mag sulfates 17.5 See Rx Instructions PO .COMPLEX 05/29/21 Rx gram-3.13 gram-1.6 gram oral soln #354 ml (Suprep Bowel Prep Kit) Allergies Allergy/AdvReac Type Severity Reaction Status Date / Time NSAIDS (Non-Steroidal AdvReac Verified 06/12/21 08:27 Anti-Inflamma Exam Vital Signs (past 8 hours): - 06/12/21 08:26 Temperature 96.9 F L Pulse Rate 116 H Respiratory Rate 18 Blood Pressure 155/92 H Pulse Oximetry 95 Oxygen Delivery Method Room Air Const General: No acute distress Resp Effort & Inspection: normal respiratory effort GI Palpation: soft Assessment & Plan Assessment and plan (1) History of colon polyps: Status: Acute Plan 66-year-old woman with a history of colon polyps on colonoscopy 6 years ago. We will get her in for another colonoscopy with sedation now. We reviewed the risks and benefits and she would like to proceed. The procedure is necessary to screen for colon cancer the diagnosis of which could, if missed or delayed lead to worse health outcomes or . COVID-19 COVID-19 status: Negative Result date/Date tested (Pos, Neg/Pending): 06/11/21 Time Spent With Patient Critical Care time: I spent a total of [] minutes of critical care time on this patient's care today; this time is exclusive of procedural time.
[2021-06-12] MEDS: fentaNYL 250 MCG/5 ML INJ IV (11:11)
[2021-06-12] MEDS: MIDAZOLAM 5 MG/5 ML VIAL IV (11:11)
--- NOTE | 2021-06-12 11:29 | PM.OP.COLON ---
Operative Date/Time/Diagnoses Date of procedure: 06/12/21 Time of procedure: 11:30 Pre-op diagnosis: History of colon polyps Post-op diagnosis: same Procedure & Clinicians Study performed: Colonoscopy Same procedure as scheduled: Yes Procedure Notes SCOAP/Timeout: Yes Procedure in detail: Procedure: The patient was brought to the endoscopy suite, placed in left lateral decubitus position. The patient was connected to monitoring devices. A time-out was performed. Sedation was administered. Once the patient was adequately sedated, a digital rectal exam was performed and was normal. The scope was then inserted and advanced to the cecum where the appendiceal orifice was identified and photographed. The scope was then slowly withdrawn over greater than 6 minutes. Mucosa was thoroughly inspected. There was a small polyp in the ascending colon just distal to the cecum which was about 6 mm. This was removed with a cold snare. There were some scattered sigmoid diverticula. The remainder of the colon was normal. The scope was retroflexed in the rectum. No abnormalities were noted other than internal hemorrhoids. The scope was straightened and removed. The patient was awakened and brought to recovery. Versed: 6 mg Fentanyl: 200 mcg EBL: 3 mL Findings: Small ascending colon polyp. Scope withdrawal time: 14 Sedation minutes: 31 Findings: divertiulosis and polyp(s) Post-procedure Recommendations: Will call with biopsy results
[2021-06-12 11:33] VITALS: BP 140/72; PULSE 84; RESP 16; TEMP 36.9; O2SAT 93
[2021-06-12 11:40] VITALS: BP 149/91; PULSE 85; RESP 16; O2SAT 92
[2021-06-12 11:43] VITALS: BP 158/78; PULSE 79; RESP 16; O2SAT 92
[2021-06-12 11:49] VITALS: BP 150/74; PULSE 82; RESP 15; TEMP 36.9; O2SAT 96
== END 2021-06-12 12:15 | disposition home or self-care (01) ==
PROVIDERS: PCP Family Medicine; Referring Provider Surgery; Visit Provider Surgery
PROC: 0DJD8ZZ Inspection of Lower Intestinal Tract, Via Natural or Artificial Opening Endoscopic (ICD-10-PCS; CPT 45378; principal; 2021-06-12 09:45)
DX: Z12.11 Encounter for screening for malignant neoplasm of colon (principal); Z86.010 Personal history of colon polyps; Z80.0 Family history of malignant neoplasm of digestive organs; I10 Essential (primary) hypertension; K57.30 Diverticulosis of large intestine without perforation or abscess without bleeding; D12.2 Benign neoplasm of ascending colon
CPT/HCPCS: 45385; 99152; 99153; J2250; J3010

== ENCOUNTER → 2022-06-03 09:21 | Outpatient (CLI) | payer MEDICARE, OTHER, SELFPAY ==
[2022-06-03 11:22] LABS: Alanine Aminotransferase 20 IU/L (<35); Albumin 4.3 g/dL (3.5-5.0); Alkaline Phosphatase 90 U/L (38-126); Aspartate Aminotransferase 24 IU/L (14-36); BUN Creatinine Ratio 28.1 (6-22); Bilirubin Total 0.7 mg/dL (0.2-1.3); Blood Urea Nitrogen 18 mg/dL (7-17); Calcium 9.2 mg/dL (8.4-10.2); Carbon Dioxide 29 mmol/L (22-32); Chloride 102 mmol/L (98-107); Estimated Glomerular Filt Rate > 60 mL/min (>60); Globulin 2.8 g/dL (1.7-4.1); Glucose 104 mg/dL (80-110); HEMOLYSIS < 15 (0-50); Potassium 4.4 mmol/L (3.4-5.1); Sodium 140 mmol/L (137-145); Total Protein 7.1 g/dL (6.3-8.2)
[2022-06-03 11:23] LABS: Albumin Globulin Ratio 1.5 (1.0-2.8); Cholesterol 202 mg/dL (140-199); HDL Cholesterol 61 mg/dL (40-60); LDL Cholesterol Calculated 126 mg/dL (<100); Triglycerides 75 mg/dL (35-150)
[2022-06-03 12:05] LABS: Creatinine Urine Random 191.9 mg/dL
[2022-06-03 12:35] LABS: Microalbumi Creatinin Ratio Ur 220.9 ug/mg CR (<30); Microalbumin Urine Random 42.4 mg/dL (0-1.6)
== END ==
PROVIDERS: PCP Family Medicine; Referring Provider Family Medicine; Visit Provider Family Medicine
DX: I10 Essential (primary) hypertension (principal)
CPT/HCPCS: 36415; 80053; 80061; 82043; 82570

== ENCOUNTER → 2022-06-16 13:43 | Outpatient (CLI) | payer MEDICARE, OTHER, SELFPAY ==
--- NOTE | 2022-06-16 13:45 | DI.MG.S_ITS ---
BILATERAL DIGITAL SCREENING MAMMOGRAM 3D/2D WITH CAD: 06/16/2022 CLINICAL: Routine screening. Family history of breast cancer. Comparison is made to exams dated: 02/28/2020 mammogram, 08/05/2017 mammogram - [facility], 06/24/2016 mammogram, and 06/21/2015 mammogram - [facility]. Both breasts are almost entirely fatty (category a/<25% glandular tissue). Current study was also evaluated with a Computer Aided Detection (CAD) system. No significant masses, calcifications, or other findings are seen in either breast. There has been no significant interval change. IMPRESSION: NEGATIVE There is no mammographic evidence of malignancy. A 1 year screening mammogram is recommended. Based on the Tyrer Cuzick model (a risk assessment model) the patient's lifetime risk is 8.7% and her 10 year risk is 4.6%. According to the ACR, ACS, and NCCN guidelines, an annual breast MRI exam along with mammogram is recommended if the patient's lifetime risk is 20% or greater. This exam was interpreted at Station ID: [id number]. NOTE: For mammograms, a report in lay terms will be sent to the patient. Approximately 15% of breast malignancies will not be visualized mammographically. In the management of a palpable breast mass, a negative mammogram must not discourage biopsy of a clinically suspicious lesion. Electronically Signed By: Nghia milner/juan:06/16/2022 18:58:25 letter sent: Normal Exam ACR BI-RADS Category 1: Negative 3341F
== END ==
PROVIDERS: PCP Family Medicine; Referring Provider Family Medicine; Visit Provider Family Medicine
DX: Z12.31 Encounter for screening mammogram for malignant neoplasm of breast (principal); M85.851 Other specified disorders of bone density and structure, right thigh; Z80.3 Family history of malignant neoplasm of breast; Z13.820 Encounter for screening for osteoporosis; Z78.0 Asymptomatic menopausal state
CPT/HCPCS: 77063; 77067; 77080

== ENCOUNTER → 2023-08-26 07:02 | Outpatient (CLI) | payer MEDICARE, OTHER, SELFPAY ==
[2023-08-26 08:46] LABS: Alanine Aminotransferase 17 IU/L (<35); Albumin Globulin Ratio 1.5 (1.0-2.8); Alkaline Phosphatase 98 U/L (38-126); Aspartate Aminotransferase 24 IU/L (14-36); BUN Creatinine Ratio 28.2 (6-22); Bilirubin Total 0.9 mg/dL (0.2-1.3); Blood Urea Nitrogen 22 mg/dL (7-17); Calcium 9.6 mg/dL (8.4-10.2); Carbon Dioxide 31 mmol/L (22-32); Chloride 104 mmol/L (98-107); Cholesterol 151 mg/dL (140-199); Estimated Glomerular Filt Rate > 60 mL/min (>60); Globulin 2.6 g/dL (1.7-4.1); Glucose 100 mg/dL (80-110); HDL Cholesterol 57 mg/dL (40-60); HEMOLYSIS < 15 (0-50); LDL Cholesterol Calculated 78 mg/dL (<100); Potassium 5.3 mmol/L (3.4-5.1); Sodium 140 mmol/L (137-145); Total Protein 6.6 g/dL (6.3-8.2); Triglycerides 78 mg/dL (35-150)
[2023-08-26 09:16] LABS: Creatinine Urine Random 74.9 mg/dL
[2023-08-26 09:19] LABS: Microalbumi Creatinin Ratio Ur 100.1 ug/mg CR (<30); Microalbumin Urine Random 7.5 mg/dL (0-1.6)
== END ==
PROVIDERS: PCP Family Medicine; Referring Provider Family Medicine; Visit Provider Family Medicine
DX: I10 Essential (primary) hypertension (principal); E78.5 Hyperlipidemia, unspecified
CPT/HCPCS: 36415; 80053; 80061; 82043; 82570

== ENCOUNTER → 2023-10-22 09:40 | Outpatient (CLI) | payer MEDICARE, OTHER, SELFPAY ==
--- NOTE | 2023-10-22 09:41 | DI.RAD.S_ITS ---
PROCEDURE: XR HIP W PEL IF DONE RT 2V INDICATIONS: hip pain TECHNIQUE: AP pelvis with lateral view(s) of the right hip(s). COMPARISON: None. FINDINGS: Bones: No fractures or dislocations. Pelvic ring appears intact. No suspicious bony lesions. Mild hip and sacroiliac joint degeneration. Soft tissues: The visualized bowel gas pattern is normal. Calcification adjacent to the greater cord tender likely secondary to calcific bursitis or tendonitis. IMPRESSION: 1. No acute bony abnormality. 2. Mild degenerative joint disease. 3. Suspect calcific bursitis or tendonitis adjacent to the greater trochanter. Dictated by: Merlin Mccurdy M.D. on 10/22/2023 at 17:11 Approved by: Merlin Mccurdy M.D. on 10/22/2023 at 17:12
[2023-10-22 11:15] LABS: BUN Creatinine Ratio 34.7 (6-22); Blood Urea Nitrogen 26 mg/dL (7-17); Calcium 9.4 mg/dL (8.4-10.2); Carbon Dioxide 30 mmol/L (22-32); Chloride 107 mmol/L (98-107); Estimated Glomerular Filt Rate > 60 mL/min (>60); Glucose 104 mg/dL (80-110); HEMOLYSIS < 15 (0-50); Potassium 4.6 mmol/L (3.4-5.1); Sodium 140 mmol/L (137-145)
== END ==
PROVIDERS: PCP Family Medicine; Referring Provider Family Medicine; Visit Provider Family Medicine
DX: M16.11 Unilateral primary osteoarthritis, right hip (principal); M46.1 Sacroiliitis, not elsewhere classified; M25.559 Pain in unspecified hip; E87.5 Hyperkalemia
CPT/HCPCS: 36415; 73502; 80048

== ENCOUNTER → 2024-08-23 09:43 | Outpatient (CLI) | payer MEDICARE, OTHER, SELFPAY ==
[2024-08-23 11:09] LABS: Creatinine Urine Random 58.09 mg/dL
[2024-08-23 11:15] LABS: Microalbumin Urine Random 4.2 mg/dL (0-1.6)
[2024-08-23 12:07] LABS: Alanine Aminotransferase 19 IU/L (<35); Albumin 4.5 g/dL (3.5-5.0); Alkaline Phosphatase 108 U/L (38-126); Aspartate Aminotransferase 24 IU/L (14-36); BUN Creatinine Ratio 25.6 (6-22); Blood Urea Nitrogen 20 mg/dL (7-17); Calcium 9.7 mg/dL (8.4-10.2); Carbon Dioxide 27 mmol/L (22-32); Chloride 102 mmol/L (98-107); Cholesterol 150 mg/dL (140-199); Estimated Glomerular Filt Rate > 60 mL/min (>60); Globulin 2.2 g/dL (1.7-4.1); Glucose 103 mg/dL (80-110); HDL Cholesterol 54 mg/dL (40-60); HEMOLYSIS < 15 (0-50); LDL Cholesterol Calculated 75 mg/dL (<100); Potassium 4.4 mmol/L (3.4-5.1); Sodium 139 mmol/L (137-145); Total Protein 6.7 g/dL (6.3-8.2); Triglycerides 106 mg/dL (35-150)
== END ==
PROVIDERS: PCP Family Medicine; Referring Provider Family Medicine; Visit Provider Family Medicine
DX: I10 Essential (primary) hypertension (principal)
CPT/HCPCS: 36415; 80053; 80061; 82043; 82570

== ENCOUNTER → 2024-08-29 10:25 | Outpatient (CLI) | payer MEDICARE, OTHER, SELFPAY ==
--- NOTE | 2024-08-29 10:27 | DI.MG.S_ITS ---
MM screening mammo BI: 08/29/2024. BI-RADS: 1 CLINICAL: 69-year old female for bilateral screening mammogram. Tyrer-Cuzick lifetime risk of 8.0%. Current reported family history of breast cancer: sister. PRIOR EXAMS 06/16/2022, 02/28/2020, 08/05/2017, 06/24/2016, 06/21/2015. MAMMOGRAPHY TECHNIQUE: 2D and 3D (tomosynthesis) digital mammographic views obtained, with additional images as needed for full coverage. Current study was also evaluated with a Computer Aided Detection (CAD) system. DENSITY A. The breasts are almost entirely fatty. MAMMOGRAPHY FINDINGS Bilateral: No suspicious mass, asymmetry, microcalcification, or other abnormality seen. No significant change from comparison. IMPRESSION: * No evidence of malignancy. RECOMMENDATIONS Bilateral * Annual screening mammography. OVERALL ASSESSMENT CATEGORY BI-RADS-1: Negative. The [employer] recommends annual screening mammography beginning at age 40 for women with average risk of breast cancer. ELECTRONICALLY SIGNED: Crystal Waggoner M.D. on 08/29/2024 at 01:01:38 PM PT Interpreting Station ID: [id number]
== END ==
PROVIDERS: PCP Family Medicine; Referring Provider Family Medicine; Visit Provider Family Medicine
DX: Z12.31 Encounter for screening mammogram for malignant neoplasm of breast (principal); Z80.3 Family history of malignant neoplasm of breast; R92.313 Mammographic fatty tissue density, bilateral breasts
CPT/HCPCS: 77063; 77067